=== PATIENT | female | born 1975 | race Caucasian/White ===

== ENCOUNTER 2017-01-04 16:23 | Inpatient (IN) | payer SELFPAY ==
[~2017-01-04] VITALS: Ht 170.2 cm; Wt 67.0 kg
[~2017-01-04 16:23] MED LIST: LEVO500T79 PO; METR500T19 PO
[2017-01-04 16:27] VITALS: BP 146/80; PULSE 98; RESP 22; O2SAT 100
[2017-01-04] MEDS ORDERED: 0.9% Sodium Chloride 1,000 ML IV ONE (16:49)
--- NOTE | 2017-01-04 16:49 | ED.REPORT ---
HPI-General Illness Date of Service Jan 04, 2017 ED Provider: Jj Olvera Patient is a 41 year old female with a hx of fallopian tube abscess who presents to the ED complaining of gradually worsening, constant, RLQ abdominal pain onset 3 days ago. She rates her pain as a 7/10 and has taken Tylenol and Morphine. She states that it feels similar to when she has had her fallopian tube abscess in the past. Associated symptoms include nausea, sweats, myalgia, diarrhea, and chills. She denies vomiting, headache, constipation, hematochezia , vaginal discharge, hematuria, dysuria, or any other symptoms. Nursing Notes Stated Complaint: STOMACH PAIN Chief Complaint: Female Abdominal Pain Nursing Notes Reviewed: Yes Allergies: Coded Allergies: amoxicillin (Verified Allergy, Severe, Rash,Itching,, 04/26/16) Scheduled PRN Acetaminophen (Acetaminophen) 325 Mg Tablet 650 MG PO Q4H PRN PRN For Pain General Time Seen by MD: 16:49 Chief Complaint Abdominal pain Hx Obtained From: Patient, Spouse Arrived By: Walk-in Sudden in Onset?: Yes Onset Occurred: 3 days ago Symptom Duration: Since onset Radiation: : Does not radiate Severity: Current: Pain level 7 out of 10 Severity: Maximum: Pain level 7 out of 10 Associated with: Reports: Nausea Context Related History: Denies Recent infection Similar Sx Previous: Yes Past Medical History Past Medical History fallopian tube abscess Past Surgical History C-spine fusion Reports: Smoking History Current Every Day Smoker Social History Alcohol Use: 1-3 per week Drug Use: THC Other Social History: Good social support, Ambulatory Status Independent Review of Systems Full Review of Systems Constitutional: Reports: Chills GI: Reports: Abdominal pain, Diarrhea, Nausea, Denies: Constipation, Hematochezia, Vomiting Female: Denies: Dysuria, Hematuria, Vaginal discharge Musculoskeletal: Reports: Myalgia Skin: Reports Diaphoresis Neurologic: Denies: Headache Complete sys rev & neg: except as marked. Physical Exam Nursing note and vitals reviewed. Constitutional: Well-developed, well-nourished. Not diaphoretic. Head: Normocephalic and atraumatic. Mouth/Throat: Oropharynx is clear and moist. No oropharyngeal exudate. Eyes: EOM are normal. Pupils are equal, round, and reactive to light. Neck: Supple, no tracheal deviation. Cardiovascular: Normal rate, regular rhythm. Equal and intact distal pulses throughout. Pulmonary/Chest: Effort normal and breath sounds normal. No respiratory distress. Abdominal: Soft. No distension. Diffusely tender to palpation in the lower abdomen. Voluntary guarding, no rebound. Bowel sounds present. Musculoskeletal: Range of motion grossly intact, moving all extremities. Neurological: AOx3. Grossly nonfocal exam. Strength and sensation intact and equal to bilateral upper and lower extremities. Skin: Warm and dry, no rashes or pallor appreciated. Psychiatric: Appropriate mood and affect. Behavior appears normal. Vital Signs Vital Signs Date Time Temp Pulse Resp B/P Pulse Ox O2 Delivery O2 Flow Rate FiO2 01/04/17 18:40 94 14 135/78 98 Room Air 01/04/17 16:27 37.1 98 22 146/80 100 Room Air Interpretation & Diagnostics Lab Results Interpretation Result Diagram: 01/04/17 1650 01/04/17 1650 Test 01/04/17 16:50 01/04/17 17:10 01/04/17 17:24 White Blood Count 19.2th/mm3 (3.8-10.1) Red Blood Count 4.28mil/mm3 (3.90-5.20) Hemoglobin 12.6g/dL (12.0-15.6) Hematocrit 36.2% (35.0-46.0) Mean Corpuscular Volume 84.6fL (81-100) Mean Corpuscular Hemoglobin 29.4pg (27.0-35.0) Mean Corpuscular Hemoglobin Concent 34.8% (32.0-37.0) Red Cell Distribution Width 13.8% (12.3-15.4) Platelet Count 280bil/L (150-400) Neutrophils (%) (Auto) 85.8% (40-74) Lymphocytes (%) (Auto) 6.5% (14-46) Monocytes (%) (Auto) 6.9% (4-12) Eosinophils (%) (Auto) 0.2% (0-5) Basophils (%) (Auto) 0.2% (0-3) Sodium Level 132mEq/L (134-144) Potassium Level 3.8mEq/L (3.5-5.2) Chloride Level 95mEq/L (97-108) Carbon Dioxide Level 21mmol/L (18-29) Blood Urea Nitrogen 6mg/dL (6-20) Creatinine 0.57mg/dL (0.57-1.00) Estimat Glomerular Filtration Rate 169mL/min (>59) Glucose Level 166mg/dL (60-99) Calcium Level 9.7mg/dL (8.5-10.1) Magnesium Level 1.6mg/dL (1.6-2.6) Total Bilirubin 1.0mg/dL (0.0-1.2) Aspartate Amino Transf (AST/SGOT) 18U/L (0-50) Alanine Aminotransferase (ALT/SGPT) 16U/L (0-32) Alkaline Phosphatase 95U/L (25-150) Total Protein 7.8g/dL (6.4-8.4) Albumin 4.2g/dL (3.4-5.0) Lipase 12U/L (13-60) Lactic Acid Level 1.1mmol/L (0.4-2.0) Urine Color Yellow (YELLOW) Urine Appearance Hazy (CLEAR,HAZY) Urine pH 7.0 (5.0-8.0) Urine Specific Avery 1.010 (1.003-1.035) Urine Protein Negativemg/dL (NEG,TRACE) Urine Glucose (UA) Negativemg/dL (NEGATIVE) Urine Ketones 40mg/dL (NEGATIVE) Urine Occult Blood Trace (NEGATIVE) Urine Nitrite Negative (NEGATIVE) Urine Bilirubin Negative (NEGATIVE) Urine Urobilinogen Normalmg/dL (NORMAL) Urine Leukocyte Esterase Negative (NEGATIVE) Urine RBC 3-10/hpf (0-2) Urine WBC 0-5/hpf (0-5) Urine Epithelial Cells Many/hpf (NONE-MOD) Urine Crystals None seen (NONE SEEN) Urine Bacteria None/hpf (NONE-FEW) Urine Hyaline Casts None/lpf (NONE) Urine Granular Casts None seen (NONE SEEN) Urine Waxy Casts None seen (NONE SEEN) Urine Red Blood Cell Casts None seen (NONE SEEN) Urine White Blood Cell Casts None seen (NONE SEEN) Urine Mucus None seen (None Seen) Urine Trichomonas None seen (NONE SEEN) Urine Yeast None (NONE SEEN) Urinalysis Comment None Urine Culture Reflexed Not indicated Lab Results Interpretation: Urine preg neg US Focused non-OB Pelvis IMPRESSION: 1. Findings suspicious for recurrent bilateral pyosalpinx in the setting of abdominal pain. 2. 2.6 cm dominant nonhemorrhagic left ovarian cyst, presumably functional given the patient's age. Dictated by: Lee Silva M.D. on 01/04/2017 at 19:02 Approved by: Lee Silva M.D. on 01/04/2017 at 19:12 Exam Performed by: Allied health pract Exam Type: Diagnostic Exam Interpreted by: Radiologist Re-Eval/Medical Decision Med Decision/Clinical Course 41-year-old female presenting to the ED for evaluation of several days of worsening abdominal pain that she thinks is similar to when she has had fallopian tube abscesses in the past. Given her history, decision was made to obtain a transvaginal ultrasound to start; her exam seems less consistent with appendicitis or any other acute intra-abdominal abnormality at this time. Laboratory studies reviewed, notable for a elevated white blood cell count. Ultrasound demonstrates findings consistent with bilateral pyosalpinx. Discussed this with the on-call OREMAN Dr. Jane - he recommended admission, broad-spectrum antibiotics, and he will see the patient in the morning. Suspect that she may need operative intervention. I discussed the above with the patient at length; patient agreeable to the plan as stated, no further questions. Time of Eval: 20:35 Re-Evaluation/Progress Note: Discussed imaging results and plan for admission. Patient understands and agrees with plan. All questions addressed at this time. Consultation : Referral / Consult Name: Alexx Jane MD Call Returned at: 20:25 Probation Worker: Will see patient, Agrees with eval, Agrees with plan, Accepts admit Note: Discussed pt's case. Admit pt. and he will see in the morning. Counseled Regarding: Diagnosis, Lab results, Need for admission Discharge & Departure Primary Impression: Pyosalpinx Disposition: ADMITTED TO HOSPITAL Discharge Condition All VS Reviewed: Yes Condition: Critical Referrals: Alexx Jane MD (PCP) Scribe Attestation Portions of this note were transcribed by Abdelrahman Hector. I, Dr. Olvera personally performed the history, physical exam and medical decision-making; I reviewed and confirmed the accuracy of the information in the transcribed note. Signed by: Abdelrahman Hector 01/04/172043 copies to: BuckAlexx troy MD, William B MD Jan 04, 2017 16:49 ABDELRAHMAN HECTOR Jan 04, 2017 16:58
[2017-01-04] MEDS ORDERED: Ondansetron 2 mg/mL 2 mL Inj IVPUSH PRN ×2 (16:50→20:45)
[2017-01-04 17:04] LABS: BASOPHILS % (AUTO) 0.2 % (0-3); EOSINOPHILS % (AUTO) 0.2 % (0-5); MONOCYTES % (AUTO) 6.9 % (4-12); Mean Corpuscular Hemoglobin 29.4 pg (27.0-35.0); Mean Corpuscular Volume 84.6 fL (81-100); NEUTROPHILS % (AUTO) 85.8 % (40-74); Platelet Count 280 bil/L (150-400)
[2017-01-04] MEDS: HYDROmorphone 0.5 mg/0.5 mL iSecure Syringe IVPUSH PRN ×3 (17:11→22:16)
[2017-01-04 17:22] LABS: Magnesium 1.6 mg/dL (1.6-2.6)
[2017-01-04 17:40] LABS: APPEARANCE,URINE HAZY (CLEAR,HAZY); COLOR,URINE YELLOW (YELLOW); OCCULT BLOOD,URINE TRACE (NEGATIVE); UROBILINOGEN,URINE NORMAL (NORMAL)
[2017-01-04 18:40] VITALS: BP 135/78; PULSE 94; RESP 14; O2SAT 98
--- NOTE | 2017-01-04 19:14 | DRSVH ---
PROCEDURE: US PELVIC SONOGRAM + TRANSVAGINAL SONOGRAM INDICATIONS: 41 year-old female with abdominal pain, and history of fallopian tube abscess. TECHNIQUE: Real-time scanning was performed of the pelvic organs, with image documentation. Additional endovagi nal scanning was necessary due to incomplete visualization of the adnexal and endometrial structures by transabdominal scanning. COMPARISON: [facility], US, US PELVIC+TRANSVAG, 05/22/2016, 10:[facility], 04/26/2016, 10:55. [facility], CT, CT ABD PELVIS W CON, 04/13, 8:33. [facility], US, PELVIS SONO TRANSVAGINAL (PNL), 04/05/2011, 16 :08. [facility], US, PELVIS SONO TRANSVAGINAL (PNL), 03/14/2011, 22:46. [facility], CT, ABD/PELVIS W/CON (PNL), 03/14/2011, 21:03. FINDINGS: Transabdominal scanning: Limited scanning through the kidneys shows no hydronephrosis. No pathologi c free abdominal or pelvic fluid. Endovaginal scanning: Uterus: Retroverted uterus is normal in size at 7.6 x 4.9 x 5.1 cm. The endometrium measures 8.2 mm in combined thickness. Several incidental cervical nabothian cysts are present. Ovaries: Left ovary measures 3.7 x 2.7 x 3.0 cm, and contains a dominant 2.6 x 2.1 x 2.0 cm thin-wall ed anechoic cyst. Right and left fallopian tubes appear thick walled and serpiginous, containing echo genic material. The right ovary itself appears normal in size and morphology, measuring 2.8 x 2.4 x 1 .6 cm. IMPRESSION: 1. Findings suspicious for recurrent bilateral pyosalpinx in the setting of abdominal pain. 2. 2.6 cm dominant nonhemorrhagic left ovarian cyst, presumably functional given the patient's age. Dictated by: Lee Silva M.D. on 01/04/2017 at 19:02 Approved by: Lee Silva M.D. on 01/04/2017 at 19:12
[2017-01-04] MEDS ORDERED: Clindamycin 900 mg/50 mL D5W IV ONE (20:40)
[2017-01-04] MEDS ORDERED: DEXTROSE 5% IV ONE (20:40)
[2017-01-04] MEDS ORDERED: GENTAMICIN IV ONE (20:40)
[2017-01-04] MEDS ORDERED: Alum-Mag Hydrox-Simeth 30 mL Suspension PO PRN (20:45)
[2017-01-04] MEDS ORDERED: Cefotetan 2,000 mg/100 mL D5W IV ONE ×2 (21:00)
[2017-01-04] MEDS ORDERED: Cefotetan Inj 2,000 MG in IV Premix 1 EACH IV ONE (21:10)
[2017-01-04 22:18] VITALS: BP 125/79; PULSE 93; RESP 18; O2SAT 96
[2017-01-04] MEDS ORDERED: ACET325T51 PO (22:32)
[2017-01-04 22:56] VITALS: BP 132/84; PULSE 91; RESP 19; O2SAT 97
[2017-01-04] MEDS ORDERED: 0.9% Sodium Chloride 250 ML ONE (23:22)
[2017-01-04] MEDS: Lactated Ringer's 1,000 ML IV SCH (23:30)
--- NOTE | 2017-01-04 23:38 | NUR ---
Arrival to unit Patient arrived to floor at 2250 via ED gurney. Able to ambulate to hospital bed independently. Complains of 4/10 lower abdominal pelvic pain. States pain medicine in ER has provided some relief. Denies CP/ SOB. VSS. IV in left AC is infusing LR at 100cc/hr with int. abx. Has stated that she tends to get anxiety while in the hospital, and that she much rather "be home." Allowed patient to voice concern and have reassured her that if there is anything we can do to make her time here more comfortable to let the staff know. Will continue to monitor and continue Q1 hour checks.
[2017-01-05] MEDS: HYDROmorphone 1 mg/mL Inj IVPUSH PRN ×4 (02:35→20:56)
[2017-01-05 05:51] VITALS: BP 130/86; PULSE 91; RESP 16; O2SAT 97
[2017-01-05] MEDS ORDERED: Clindamycin Inj 900 MG in IV Premix 1 EACH IV SCH (06:30)
[2017-01-05] MEDS: Lactated Ringer's 1,000 ML IV SCH ×3 (06:41→16:41)
[2017-01-05] MEDS ORDERED: Cefotetan Inj 2,000 MG in IV Premix 1 EACH IV SCH (09:15)
[2017-01-05] MEDS ORDERED: 0.9% Sodium Chloride 250 ML ONE (11:32)
[2017-01-05 11:44] LABS: BASOPHILS % (AUTO) 0.1 % (0-3); EOSINOPHILS % (AUTO) 0.3 % (0-5); MONOCYTES % (AUTO) 8.6 % (4-12); Mean Corpuscular Hemoglobin 29.1 pg (27.0-35.0); Mean Corpuscular Volume 85.4 fL (81-100); NEUTROPHILS % (AUTO) 82.7 % (40-74); Platelet Count 240 bil/L (150-400)
[2017-01-05] MEDS: Doxycycline Inj 100 MG in Dextrose 5% Minibag Plus 100 ML IV SCH (12:39)
--- NOTE | 2017-01-05 13:49 | NUR ---
Pain Patient reported 7/10 abdominal pain. 1mg Dilaudid given. Denies nausea. Patient independent in room. Repositions self for comfort. Call light and tray within reach. Will continue to monitor patient hourly.
[2017-01-05 19:42] VITALS: BP 119/79; PULSE 98; RESP 18; O2SAT 98
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
--- NOTE | 2017-01-05 21:16 | PROG NOTE ---
[address] [address] PROGRESS NOTE PATIENT: CASI GIORDANO : 1975 MR#: [id number] ADMIT: 01/04/2017 JOB ID: [id number] GYNECOLOGIC PROGRESS NOTE: DATE: 01/05/2017 TIME: About 1500 hours. SUBJECTIVE: The patient was admitted to [facility] on 01/04/2017 with suspected recurrent tubo-ovarian abscesses. Emergency department physician on admission initiated cefotetan, gentamicin, and clindamycin therapy. I have since adjusted the antikbiotic regimen to cefotetan and doxycycline therapy only. Pain continues today, although less than 14 hours after initiation of antibiotic therapy. Patient has been afebrile. White blood cell count has dropped from 19 to 15. OBJECTIVE: Abdominal and pelvic examinations have been accomplished with significant tenderness demonstrated, and urine GC and chlamydia Gen-Probe studies are pending. DISCUSSION AND COUNSELING: I have had a lengthy discussion with patient and her significant other regarding the presumed, recurrent, tubo-ovarian abscesses, see records from prior hospitalizations in 2010 and 2005 as well as current findings, all in the setting of recurrent abdominopelvic pain and elevated white blood cell count. Patient and her significant other indicate that they would like to have surgery to once and for all resolve the problem. This is ultimately a reasonable consideration in light of recurrent tubo-ovarian abcesses, although she first is receiving appropriate antibiotic therapy to hopefully shrink them as much as possible if not to completely resolve them and infection before any surgery. Thus, conservative management is currently appropriate unless some type of tubo-ovarian rupture, potential sepsis , or antibiotic failure occurs. There is the possibility that conservative management could lead to sterilized or fully resolved abscess pockets, although we cannot guarantee that this would occur, nor could we predict for certain whether or not abcesses would later recur. Of course, the advantage of effective conservative therapy would be to eliminate the need for major surgery, which could also result in menopause depending on what procedures would be needed. Most likely, surgery would be definitive with pelvic cleanout (removal of uterus, ovaries, tubes) due to probable significant scarring. The patient and her significant other do seem to understand the risks as well as value of surgery that will likely take place in the future, although there is the importance of current IV antibiotic therapy to quiet down infection to see where things end up. They clearly understand that antibiotics will be continued during hospitalization as well as after, and that we will have many opportunities to review clinical course as well as plan for the future. All questions have been answered, adn no guarantees have been stated or implied. IMPRESSION/PLAN: 1. Presumed bilateral, recurrent, tubo-ovarian abscesses, undergoing intravenous antibiotic therapy at [facility]. 2. Tracking clinical condition including pain, temperature, and white blood cell count and differential while using intravenous cefotetan and doxycycline. 3. For further discussion along the way regarding short- and long-term goals and options, ultimately to make a decision regarding whether to proceed with simply conservative antibiotic therapy and then observation over time versus more definitive surgical therapy, see discussion above. MTDD
[2017-01-05] MEDS: Cefotetan Inj 2,000 MG in IV Premix 1 EACH IV SCH (22:25)
[2017-01-06] MEDS: oxyCODONE-Acetamin 5-325 mg Tablet PO PRN ×6 (02:33→23:08)
[2017-01-06] MEDS: Lactated Ringer's 1,000 ML IV SCH ×3 (02:34→22:41)
[2017-01-06 03:54] VITALS: BP 114/76; PULSE 77; RESP 16; O2SAT 97
[2017-01-06 05:00] LABS: BASOPHILS % (AUTO) 0.1 % (0-3); EOSINOPHILS % (AUTO) 1.1 % (0-5); MONOCYTES % (AUTO) 12.2 % (4-12); Mean Corpuscular Volume 85.1 fL (81-100); NEUTROPHILS % (AUTO) 77.6 % (40-74); Platelet Count 276 bil/L (150-400)
--- NOTE | 2017-01-06 06:04 | NUR ---
Pain/activity Pt reported 8/10 pain to right side abdomen and took 1mg IV Dilaudid at beginning of shift. Pt able to sleep. Pain did come back up to 8/10 and pt took 2 tab of Percocet with much better relief. Pt reported pain 2/10 this morning and tolerable. Pt voiding in bathroom and blood noted in urine. Pt said this occurred yesterday but only when she voids. Abdomen is soft and VSS. Labs drawn this morning. Addendum: 01/06/17 at 0635 by ABDELRAHMAN PANIAGUA RN MD made aware, orders received for UA. Also suggested to have pt use Tampon to see if there is vaginal bleeding.
[2017-01-06] MEDS: Doxycycline Inj 100 MG in Dextrose 5% Minibag Plus 100 ML IV SCH ×2 (08:14→20:07)
[2017-01-06 08:45] VITALS: BP 114/71; PULSE 75; RESP 18; O2SAT 96
[2017-01-06] MEDS: Cefotetan Inj 2,000 MG in IV Premix 1 EACH IV SCH ×2 (11:23→23:01)
[2017-01-06 12:29] LABS: BASOPHILS % (AUTO) 0.2 % (0-3); MONOCYTES % (AUTO) 10.2 % (4-12); Mean Corpuscular Hemoglobin 29.2 pg (27.0-35.0); Mean Corpuscular Volume 85.8 fL (81-100); NEUTROPHILS % (AUTO) 78.2 % (40-74); Platelet Count 290 bil/L (150-400)
[2017-01-06 13:14] VITALS: BP 121/77; PULSE 81; O2SAT 100
[2017-01-06 15:05] LABS: APPEARANCE,URINE CLEAR (CLEAR,HAZY); COLOR,URINE STRAW (YELLOW)
[2017-01-06 15:06] LABS: OCCULT BLOOD,URINE TRACE (NEGATIVE); UROBILINOGEN,URINE NORMAL (NORMAL)
--- NOTE | 2017-01-06 16:26 | NUR ---
Pain/Plan Pt pain levels have decreased today with c/o 4 out of 10. Controlled with 1-2 tabs Percocet. Per MD, wants pt on IV antibiotics for at least 1-2 more days to prevent readmit, pt understood and agrees and compliant with care. Possible discharge Friday pending labs/pain control. No BM noted for past 5 days, pt does not feel constipated, took prune juice, declines stool softener at this time, and feels like she may have a BM on her own. Continue to monitor.
[2017-01-06 19:50] VITALS: BP 130/83; PULSE 70; RESP 16; O2SAT 99
--- NOTE | 2017-01-07 03:08 | NUR ---
Pain Pt reporting pain from 3-7/10 and has been taking 2 tab of Percocet with good relief. Pt did not want to use tampon to check for vaginal bleeding as she "does not tolerate them." Pt instead able to wipe and knows that she is having some vaginal bleeding but that this only occurs when she is on the toilet and is not actively bleeding while in bed. Abdomen is soft and VSS. Pt had another loose BM tonight.
[2017-01-07] MEDS: oxyCODONE-Acetamin 5-325 mg Tablet PO PRN ×4 (04:07→23:21)
[2017-01-07 05:46] VITALS: BP 129/85; PULSE 75; RESP 16; O2SAT 98
--- NOTE | 2017-01-07 06:25 | NUR ---
Pain Pt reporting the need to have another BM this morning, feeling increased pressure but unable to go, Pt given prune juice and stool softener, along with Maalox. Pt up walking to help with pain.
--- NOTE | 2017-01-07 06:44 | PROG NOTE ---
[address] [address] PROGRESS NOTE PATIENT: CASI GIORDANO : 1975 MR#: [id number] ADMIT: 01/04/2017 JOB ID: [id number] DATE: 01/06/2017 TIME: 1700. SUBJECTIVE: The patient was admitted to [facility] on the evening of January 04, 2017 with suspected recurrent tuboovarian abscesses. She was initiated on parenteral antibiotic therapy as primary treatment, with plans to keep hospitalized until pain notably diminished, white blood cell count has normalized, etc. She, her significant other and I have discussed ongoing outpatient antibiotic therapy for a time to follow hospitalization and also potential surgical option to remove fallopian tubes (and potentially uterus and ovaries if indicated, understanding risk of menopause if in fact, ovaries removed), for more definitive treatment in light of recurrent tuboovarian abscesses over the past several years. More discussion regarding options will occur in the future. HOSPITAL COURSE: The patient has been voiding, ambulating, eating and drinking and feeling better in general. She is doing well on occasional Percocet use. Pain is less in general, and on exam the abdomen is softer and tenderness significantly reduced, although still moderate in the lower abdomen, particularly the right side. The patient has remained afebrile and vitals have remained stable. She has had no leg pain or shortness of breath. Note that she has had some intermittent vaginal bleeding, originally she thought blood in the urine although second urinalysis during hospitalization is negative and vaginal blood more apparent. Note that white blood cell count has gradually diminished from original 19.2, then 15.5, then 14.9, then 13.1 around noon on January 06, 2017. There is slight left shift although neutrophils at 78% just above the upper limit of normal range. Note that urine chlamydia and gonorrhea studies are yet pending. Note that sodium is normalized up to 136, simply with increasing oral intake. IMPRESSION: Recurrent tuboovarian abscesses, appearing to be responding clinically with decreasing pain, softer abdomen, feeling better in general and normalizing white blood cell count. PLAN: Continue current therapy with cefotetan and doxycycline. Probably will be able to discharge in a couple of days, continuing to track clinical symptomatology and white blood cell count. Over the long run, we will negotiate with the patient, plans for outpatient antibiotic therapy for extended period of time, tracking of the abscesses by ultrasound hopefully to resolution, and then the big decision is to whether or not to proceed with more definitive surgical intervention versus allowing one more effort at conservative antibiotic management before major surgery that has risks and could lead to menopause.
[2017-01-07] MEDS: Lactated Ringer's 1,000 ML IV SCH ×2 (08:41→18:41)
[2017-01-07 11:03] VITALS: BP 135/84; PULSE 115; RESP 18; O2SAT 100
[2017-01-07] MEDS: Doxycycline Inj 100 MG in Dextrose 5% Minibag Plus 100 ML IV SCH ×2 (11:20→22:28)
[2017-01-07] MEDS: Cefotetan Inj 2,000 MG in IV Premix 1 EACH IV SCH ×2 (11:21→21:52)
[2017-01-07] MEDS ORDERED: 0.9% Sodium Chloride 100 ML ONE (11:27)
--- NOTE | 2017-01-07 17:08 | NUR ---
Pain Management Pain managed with 2 Percocet. Patient reports 9/10 pain. Patient educated on notifying RN for PRN pain meds. Denies nausea this shift. Patient independent in room and repositions self for comfort. Call light and tray table within reach. Will continue to monitor patient hourly.
[2017-01-07 19:27] VITALS: BP 137/92; PULSE 100; RESP 16; O2SAT 98
[2017-01-07 19:47] LABS: BASOPHILS % (AUTO) 0.1 % (0-3); EOSINOPHILS % (AUTO) 0.1 % (0-5); MONOCYTES % (AUTO) 5.4 % (4-12); Mean Corpuscular Hemoglobin 28.8 pg (27.0-35.0); NEUTROPHILS % (AUTO) 88.7 % (40-74); Platelet Count 351 bil/L (150-400)
[2017-01-07] MEDS: HYDROmorphone 1 mg/mL Inj IVPUSH PRN (20:55)
--- NOTE | 2017-01-07 22:12 | DRSVH ---
PROCEDURE: CT ABDOMEN AND PELVIS WITH CONTRAST ([id number]) INDICATIONS: abdominal and pelvic pain TECHNIQUE: After the administration of oral and intravenous contrast, 5 mm thick sections acquired from the diap hragms to the symphysis. 5 mm thick coronal and sagittal reformats were performed. For radiation do se reduction, the following was used: automated exposure control, adjustment of mA and/or kV accordi ng to patient size. COMPARISON: [facility], CT, CT ABD PELVIS W CON, 04/26/2016, 8:33. FINDINGS: Image quality: Excellent. ABDOMEN: Lung bases: There is mild atelectasis at the bilateral lung bases. Solid organs: Liver and spleen are normal in size and enhancement. Gallbladder is mildly distended. No gallbladder wall thickening or pericholecystic fluid.. Biliary system is non-dilated. Pancreas enhances normally. No adrenal nodules. Kidneys are normal in size and enhancement, without hydronep hrosis. Peritoneum and bowel: Stomach, small bowel, and colon loops are normal in overall caliber and wall t hickness. There is dilatation of the fluid-filled ascending colon. The transverse descending and sigm oid colon demonstrate normal caliber and wall thickness. No pneumoperitoneum. Nodes and vessels: No retroperitoneal or mesenteric adenopathy. Aorta and inferior vena cava are no rmal in caliber. Miscellaneous: No ventral hernias. PELVIS: Genitourinary: Bladder wall thickness is normal. Similar to the study dated 04/26/16, the bilateral fallopian tubes are ectatic and fluid filled. However, the current study demonstrates marked hyperemi a wall thickening which is a new finding. The a low-density fluid collection with rim enhancement is present within the posterior pelvis which measures 3.1 x 6.9 x 4.8 cm, consistent with a pelvic absce ss. Miscellaneous: No inguinal hernias or adenopathy. Bones: No suspicious bony lesions. No vertebral body compression fractures. IMPRESSION: 1. Ectasia of the bilateral fallopian tubes and marked wall thickening and hyperemia consistent with bilateral tubo-ovarian abscess. 2. Posterior pelvic rim enhancing fluid collection consistent with pelvic abscess. 3. Moderate dilatation of the fluid-filled ascending colon. This finding is likely reactive in nature given the inflammatory changes of the pelvis. The bowel is otherwise normal in course and caliber. These findings were discussed with at 10:07 PM on 01/09/17. Dictated by: Kena Ly M.D. on 01/07/2017 at 22:01 Approved by: Kena Ly M.D. on 01/07/2017 at 22:11
--- NOTE | 2017-01-07 22:32 | PROG NOTE ---
[address] [address] PROGRESS NOTE PATIENT: CASI GIORDANO : 1975 MR#: [id number] ADMIT: 01/04/2017 JOB ID: [id number] GYNECOLOGICAL PROGRESS NOTE: DATE: 01/07/17 SUBJECTIVE: The patient was admitted to [facility] in the evening of January 04, 2017 with a diagnosis of recurrent bilateral tubo-ovarian abscesses. This is at least the 3rd episode of hospitalization for pain and infection involving the tubo-ovarian areas. The last was in the fall of 2015, and she did not adequately follow up with treatment and sonographic followup. She was found to have a 5.1 x 2.5 x 3.6 cm right adnexal area suspected tubo-ovarian abscess, and 4.6 x 2.5 x 2.2 cm suspected left tubo-ovarian abscess. These abscesses were initially treated with intravenous antibiotics as initiated per emergency department physician, then switched to just cefotetan 2 g IV piggyback every 12 hours and doxycycline 100 mg IV piggyback every 12 hours. The patient experienced a gradual but steady improvement into January 05, 2017, then January 06, 2017, remaining afebrile, with significantly decreasing pain that was controlled with occasional Percocet use, and white blood cell count dropped from 19 range down to 13 range. It was anticipated that the patient would continue to improve with plans probably for discharge tomorrow, i.e. on January 08, 2017. Note, however, that today the patient reports that she has increased pain in her abdomen, she describes now in the right upper quadrant. This pain has waxed and waned in its intensity, but has persisted throughout the day. She does not describe pain in the left upper quadrant, her back, or lower abdomen, although that is where prior pain had been centered, especially towards her right side. The patient reports that it has been very uncomfortable to take a deep breath, with pain in the right upper quadrant, and that Percocet is not adequately controlling the pain, although she has slept a lot today, according to the nurse. The patient reports having some dry heaves and not eating much thus, and she also has had need to have a bowel movement and, in fact, had an episode of diarrhea earlier in the day, but she then felt a little bit better after. She is on the antibiotics as described which could modify the bowel cynthia. She indicates that her current discomfort in the right upper quadrant is an 8 or 9/10 on the pain scale at the time of my visit this evening, and says it is very different than the presumed tubo-ovarian abscess pain. She does not have known history of gallstones, liver problems, pancreatic problems, nor has she had flank pain to suggest urinary tract problem. PHYSICAL EXAMINATION: Afebrile, note heart rate 115 late morning, 100 this evening, blood pressure very mildly elevated at the time of agitation and pain. The abdomen is soft, in general, although with guarding. No obvious mass. Moderately tender in the right upper quadrant, nontender in the left upper quadrant, as well as across the lower abdomen/pelvis, although I did not press extremely hard. DIAGNOSTIC DATA: CT scan with intravenous and oral contrast of the abdomen and pelvis is pending. Lab work has demonstrated white blood cell count back up at 15.1, with 88.7% neutrophils. Hemoglobin is 13.0. Note ALT mild elevation at 49 and alkaline phosphatase elevation at 176. Note sodium and chloride dropped with values at 134 and 92 respectively, and a lactic acid is still in normal range, although increased somewhat at 1.8. Her increase from last check at 1.8 from 1.1. IMPRESSION: 1. Presumed bilateral tubo-ovarian abscesses, recurrent, undergoing intravenous antibiotic therapy with significant improvement in clinical condition/pain/white blood cell count during the 1st 48 hours of hospital observation and treatment. 2. New-onset of right upper quadrant pain today, waxing and waning in intensity, significant pain level at times with Percocet reportedly inadequately covering pain. Need to rule out cholelithiasis/cholecystitis, hepatic/pancreatic/kidney condition. Cannot rule out gastrointestinal disorder contributing to the pain in light of diarrhea episode and the sensation that she needs to go again. 3. See the impression list on history and physical from January 04, 2017 for additional diagnoses. PLAN: 1. Continuing cefotetan and doxycycline intravenously. 2. Added Dilaudid intravenously to Percocet. Availability for pain management. 3. I contacted Dr. Jonh Johnson, the general surgeon, regarding the patient's new onset of right upper quadrant pain of potential significance. He recommended CAT scan of the abdomen and pelvis with intravenous and oral contrast, now ordered. He and I also agreed to do a CBC, comprehensive metabolic panel, lipase, lactic acid level, and urinalysis, again with culture and sensitivity if indicated. 4. Depending on findings on imaging and labs (see results above), an ultrasound, to be reviewed per Drs. Jane and Jonh Johnson, to correlate with other clinical manifestations, and determine what is next observational versus diagnostic versus therapeutic maneuver. 5. Regarding the tubo-ovarian abscesses, doubt that these are contributing to right upper quadrant pain, unless some surprise finding on CAT scan or otherwise, would likely continue to observe on intravenous antibiotics in then ultimately oral antibiotics at home to follow serially transvaginal sonograms until hopefully masses resolve. Major surgery to remove tubes (and potentially ovaries and uterus) could be undertaken in time if needed. We hope to avoid major surgery, but with multiple recurrent episodes of tubo-ovarian abscesses, surgery becomes a reality, although the patient could make informed decision for optimal ongoing antibiotic therapy and serial studies regarding the abscesses to see if they fully resolve, no guarantees stated or implied. Note that if surgery for some reason is needed pertaining to the right upper quadrant pain, then there could be laparoscopic or other evaluation down low in the pelvis to view the tubo-ovarian abscess, then to potentially lead to surgical treatment if desired. DIONISIOD
--- NOTE | 2017-01-07 23:28 | CONS ---
[address] [address] CONSULTATION REPORT PATIENT: CASI GIORDANO : 1975 MR#: [id number] ADMIT: 01/04/2017 JOB ID: [id number] DATE OF SERVICE: 01/07/2017 REQUESTING PHYSICIAN: Alexx Jane M.D. HISTORY OF PRESENT ILLNESS: A 41-year-old female whom I was asked to see by Dr. Taiwo Jane because of worsening abdominal pain. She has a history of tubo-ovarian abscesses. She has failed followup and treatment of that as an outpatient after being hospitalized both in 2010 and 2014. In 2015, she had another tubo-ovarian abscess. She was readmitted on January 04, [address] Jane when she presented to the emergency department with lower abdominal pain. An ultrasound demonstrated a 5.1 x 2.5 x 3.6 right tubo-ovarian abscess and 4.6 x 2.5 x 2.2 left ovarian abscess. She was put on cefotetan and doxycycline. She initially showed improvement with her white blood cell count falling from 19,200 on January 04, 2017 to 13.1 yesterday, but today complained of increasing abdominal pain and, in particular, right upper quadrant abdominal pain. Her white blood cell count increased to 15.1, and she was noted to have a mild tachycardia. She was seen by Dr. Jane who noted right upper quadrant tenderness and called me and asked me to see her in consultation. She states she has had some nausea. She describes watery bowel movements she says are greenish, not bloody or red. She states just prior to coming to the hospital, she was taking multiple ibuprofen, she said up to six or seven at a time because of the pain. She has not had previous abdominal surgery. There is no known family history of gallstones. She said she was given some IV Dilaudid and is feeling better but still has abdominal pain. PAST MEDICAL HISTORY: ILLNESSES: 1. Multiple tubo-ovarian abscesses. 2. Tobacco abuse. She states seven cigarettes a day. 3. History of section. SOCIAL HISTORY: She is . She describes a stable relationship. FAMILY HISTORY: Negative for gastrointestinal disease or gallbladder disease. REVIEW OF SYSTEMS: Otherwise negative. PHYSICAL EXAMINATION: VITAL SIGNS: BMI 67, temperature is 36.8, brachial blood pressure 137/92, pulse 100, respiratory rate 16, O2 sat 98%. HEENT: PERRLA, EOMI. No scleral icterus. NECK: Trachea midline. No appreciable masses. LUNGS: Clear. CARDIAC EXAM: Regular rhythm. ABDOMEN: When I examined her, she actually has no right upper quadrant tenderness, but she does have bilateral lower quadrant tenderness and guarding. No left upper quadrant tenderness. EXTREMITIES: No edema. SKIN: No anterior abdominal wall rashes. NEUROLOGIC EXAM: Appropriate affect. No obvious cranial nerve deficits. She moves all extremities, but she was in bed and I did not assess her gait. LABORATORY RESULTS: White blood cell count today 15.1 up from 13.1 yesterday, hematocrit is 37.0, platelet count 351,000. She does have a left shift. Electrolytes: Sodium 134, potassium 4.3, total CO2 is 24, creatinine 0.57, glucose 131, lactic acid 1.8, bilirubin 0.6, AST 35, ALT 49, lipase 19. CT scan of the abdomen and pelvis with contrast seen and reviewed by myself and also together with Dr. Kena Ly from Radiology and then subsequently I discussed this with Dr. Jane. She has bilateral tubo-ovarian abscesses but also posterior pelvic rim enhancing fluid collection in the posterior pelvis between the uterus and rectum measuring about 7 cm consistent with an abscess. Her gallbladder appears normal. She has a fluid-filled right colon but without inflammation, but the right colon is up to approximately 8.7 cm. There is no free air. The pancreas appears normal. IMPRESSION: Her abdominal pain, and it appears by CT scanning, that all her pain is secondary to her complex recurrent tubo-ovarian abscesses and now probably a pelvic abscess. She may have an ileus involving the colon from her pelvic disease, but she does describe watery diarrhea earlier today. RECOMMENDATIONS: 1. Continue IV antibiotics. 2. Consider drainage of the pelvic abscess. If it cannot be done percutaneously, then consider laparoscopy. 3. I think it is okay to keep her on clear liquids. Thank you for allowing me to help you in her care.
[2017-01-07 23:43] LABS: APPEARANCE,URINE CLOUDY (CLEAR,HAZY); COLOR,URINE BLOODY (YELLOW); OCCULT BLOOD,URINE LARGE (NEGATIVE); PH,URINE 6.5 (5.0-8.0); UROBILINOGEN,URINE NORMAL (NORMAL)
[2017-01-08] VITALS (12 sets, daily range): BP systolic 125–153; BP diastolic 55–97; PULSE 68–119; RESP 12–22; O2SAT 92–97
--- NOTE | 2017-01-08 02:56 | NUR ---
Activity Pt back from CT at 2150. Pt reporting pain controlled at 3/10 after having Dilaudid IV 1mg. UA was sent. Pt able to sleep and 2 hours later needed 2 tabs of Percocet for 8/10 pain. Pt placed on clears per consultation note. Pt now sleeping and appears comfortable.
[2017-01-08] MEDS: HYDROmorphone 1 mg/mL Inj IVPUSH PRN ×6 (04:11→20:37)
[2017-01-08] MEDS: oxyCODONE-Acetamin 5-325 mg Tablet PO PRN ×3 (05:51→23:30)
[2017-01-08 06:31] LABS: BASOPHILS % (AUTO) 0.1 % (0-3); EOSINOPHILS % (AUTO) 0.1 % (0-5); MONOCYTES % (AUTO) 6.5 % (4-12); Mean Corpuscular Hemoglobin 29.2 pg (27.0-35.0); Mean Corpuscular Volume 82.3 fL (81-100); NEUTROPHILS % (AUTO) 88.2 % (40-74); Platelet Count 336 bil/L (150-400)
[2017-01-08] MEDS: Doxycycline Inj 100 MG in Dextrose 5% Minibag Plus 100 ML IV SCH ×2 (08:52→20:06)
[2017-01-08 11:30] LABS: INR 1.13 ratio
[2017-01-08] MEDS: Piperacillin-Tazo 3.375 Gm Inj 3.375 GM in Dextrose 5% Minibag Plus 50 ML IV SCH ×2 (12:25→22:27)
--- NOTE | 2017-01-08 14:13 | PROG NOTE ---
[address] [address] PROGRESS NOTE PATIENT: CASI GIORDANO : 1975 MR#: [id number] ADMIT: 01/04/2017 JOB ID: [id number] DATE: 01/08/2017 SUBJECTIVE: The patient is seen this morning in her room. She continues to have abdominal pain. Her white blood cell count has increased. She had a bowel movement and is passing gas. REVIEW OF SYSTEMS: She denies nausea or vomiting. PHYSICAL EXAMINATION: BMI 23. Temperature is 36.7, brachial blood pressure 130/94, pulse 103, respiratory rate 18, O2 sat room air 93%. Abdomen is mildly distended. She has four quadrant tenderness but significantly worse in the lower quadrants than the upper quadrants. LABORATORY RESULTS: White count 21,500, hematocrit 34.9, platelet count 336,000. INR 1.13. ASSESSMENT AND PLAN: I reviewed her CT scan from this morning with Dr. Ly. Dr. Jane had already done that. I discussed her case in detail with both Dr. Ly and later with Dr. Jane. I concur that the best way to approach her pelvic abscesses percutaneously if possible, and Dr. Ly is planning on doing that today. Hopefully she will then be able to cool off. Dr. Jane asked me about antibiotic choices and I recommended discussing it with Dr. Kishore Mcghee. TIME SPENT WITH PATIENT AND IN COORDINATION OF CARE: 40 minutes.
[2017-01-08] MEDS ORDERED: fentaNYL-PF 50 mCg/mL 2 mL Inj ONE (14:26)
--- NOTE | 2017-01-08 14:30 | NUR ---
Social Work- Brief Note Data: EMR reviewed. Pt is a 41 year old female admitted 01/04/17 for bilateral hydrosalpinx per H&P. Pt's pelvic abscesses to be drained percutaneously today. Pt continues on IV abx. Pt's PCP is listed as Alexx Jane MD. Pt is self pay insurance. Pt's [facility] is inactive at this time. [facility] is aware and following pt but pt has not completed screening at this time. [facility] continues to attempt screening. SW met with pt and family at bedside regarding discharge planning, SW role explained. Pt was asleep during this conversation and did not wake. Pt's mother Alannah, father John, and fiance [facility], were present and answered questions. Pt resides in [place] in a home with a roommate. Pt works at [employer] in [facility]. Pt is independent at baseline. Pt anticipated to discharge home with family to transport via POV, SW will continue to follow if needs arise, R/O IV abx. Assessment: Pt who is independent at baseline Plan: Pt's pelvic abscesses to be drained percutaneously today. [facility] is following pt. Pt is independent at baseline. Pt anticipated to discharge home with family to transport via POV, SW will continue to follow if needs arise, R/O IV abx. MARCO Bee
--- NOTE | 2017-01-08 14:30 | NUR ---
Pt off unit Pt off unit to IR.
[2017-01-08] MEDS ORDERED: fentaNYL-PF 50 mCg/mL 2 mL Inj IVPUSH ONE (16:05)
--- NOTE | 2017-01-08 16:14 | DRSVH ---
PROCEDURE: CT ABCESS DRAIN PERITONEAL INDICATIONS: posterior cul-de-sac abcess to drain per I.R. COMPARISON: None. The risks and benefits of the procedure were discussed with the patient, consent was obtained, and pl aced on the chart. The patient was placed in a prone position on the CT table. Conscious sedation and cardiorespiratory monitoring was provided by residential staff. 1% lidocaine was used to anesthe tize the skin over the area of interest. Using CT guidance, an 18 gauge Chiba needle was advanced int o the pelvic fluid collection. There was return of straw-colored turbid fluid. 20 cc were aspirated a nd sent for laboratory analysis. The inner stylette of the needle was removed, and a stiff 035 Amplat z wire was advanced into the fluid collection. The outer stylette of the needle was removed, and an 8 Vietnamese locking pigtail drain was advanced into the fluid collection. This was secured in place and c onfirmed by CT imaging. The drain was secured to the skin with an adhesive bandage. The patient tolerated the procedure well. FINDINGS: Initial CT demonstrates a low to intermediate density fluid collection within the cul-de-s ac. Final CT image demonstrates a locking pigtail drain within this fluid collection. IMPRESSION: Status post CT guided pelvic abscess drain placement. Dictated by: Kena Ly M.D. on 01/08/2017 at 16:10 Approved by: Kena Ly M.D. on 01/08/2017 at 16:12
--- NOTE | 2017-01-08 16:54 | PROG NOTE ---
[address] [address] PROGRESS NOTE PATIENT: CASI GIORDANO : 1975 MR#: [id number] ADMIT: 01/04/2017 JOB ID: [id number] DATE: 01/08/2017 SUBJECTIVE: The patient was admitted on January 04, 2017, with recurrent tubo-ovarian abscesses and associated pain and elevated white blood cell count. Cefotetan and doxycycline were both provided from the onset of hospitalization intravenously and the patient notably improved over the first 48 hours. However, pain worsened subsequently and white blood cell count elevated, and imaging (CAT scan) demonstrated development of a new posterior cul-de-sac abscess, up to 6.9 cm in greatest dimension. All of these findings were rather consistent with failing antibiotic therapy, warranting intervention. Note the colon was also dilated, although not dangerously so. The patient has continued to move gas and has had bowel movements, although more recently diarrhea. INCOMPLETE DICTATION: Dictation ends here.
--- NOTE | 2017-01-08 16:59 | NUR ---
[facility] Conscious sedation in CT at 1430 without problem. Return to [facility] at 1545 for sedation recovery. Return to room 1005 at 1645. Report to receiving RN.
--- NOTE | 2017-01-08 17:13 | NUR ---
Post Op Pt arrived to room 1005 at 1700 via her bed. Pt A&Ox3. YOON. States pain is a tolerable 01/20. Denies nausea. Would like to eat. paged and general diet ordered. Drain dressing c/d/I. Draining yellow fluid. Care continues.
[2017-01-08 17:20] LABS: BFWBC 192000 /mm3; MONOCYTES,BODY FLUID 2 %; OTHER CELLS,BODY FLUID 0
[2017-01-08] MEDS ORDERED: 0.9% Sodium Chloride 250 ML ONE (20:06)
[2017-01-09] VITALS: BP 146/90; PULSE 113; RESP 16; O2SAT 96
--- NOTE | 2017-01-09 01:08 | PROG NOTE ---
[address] [address] PROGRESS NOTE PATIENT: CASI GIORDANO : 1975 MR#: [id number] ADMIT: 01/04/2017 JOB ID: [id number] DATE: 01/08/2017, 13:00 hour. HOLE DIGGER PROGRESS NOTE: The patient was admitted [facility] on January 04, 2017, with diagnosis of presumed bilateral tubo-ovarian abscesses, recurrent, having had them develop and require treatment on more than one prior occasion. Note that with cefotetan and doxycycline, pain and white blood cell count steadily improved through the first 48 hours of hospitalization. However, subsequently abdominopelvic pain increased and then became rather significant by this morning (January 08, 2017), and white blood cell count climbed up to 15 from 13, and then all the way up to 21. Note that increasing pain and white blood cell count correlated with CAT scan findings from January 07, 2017, of new pelvic abscess in the posterior cul-de-sac region. PHYSICAL EXAMINATION: Vital signs acceptable, although some borderline to mild tachycardia, note afebrile status, note abdomen demonstrated diffuse abdominal tenderness, greater in the right lower quadrant, soft abdomen although guarding. DISCUSSION AND PLANNING: I have had a thorough discussion with the patient and her significant other regarding the progression in pain, increasing white blood cell count, and new finding of abscess. Antibiotic therapy is failing. It is now prudent to consider either an intervention by Radiology to drain the cul-de-sac abscess and leave the drain in place versus surgical maneuvering. I have discussed the case with Dr. Jonh Johnson, who also examined the patient, and we agreed that an interventional radiologic procedure would be preferable to surgery, which could be much more complex and with greater risk at this point of significant ongoing infection within the pelvis. If abscess could be drained then a change in antibiotics and time could potentially quiet down the process and allow for safer surgery later, probably definitive surgery with pelvic clean out. I have also spoken with Dr. Kena Ly, radiologist, and we reviewed films and she described drainage effort could be undertaken. I spoke also with HOLE DIGGER Oncology ophthalmic surgical assistant and robotic surgery expert from [place], and he also recommended an effort at drainage of the abscess and ongoing antibiotic therapy in an effort to quiet the infection rather than jumping into surgery. Finally, I also spoke with Dr. Mcghee, Infectious Disease specialist at [facility], and we agreed on switching cefotetan to Zosyn and to continue the doxycycline. The patient and her significant other are agreeable to these plans. IMPRESSION: 1. Recurrent bilateral tubo-ovarian abscesses. 2. New abscess in the cul-de-sac region, in conjunction with increasing white blood cell count and increasing pain, the finding of current antibiotic failure and need for additional intervention by a radiologist in attempt to drain cul-de-sac abscess plus adjustment in antibiotics, while surgical intervention would be a distant next option unless abscess rupture, sepsis, or other condition change would so warrant. PLAN: 1. I appreciate Dr. Jonh Johnson's input and recommendations today. 2. Dr. Kena Ly will make an effort at cul-de-sac abscess drainage and drain placement this afternoon. 3. Infectious Disease specialist, Dr. Mcghee, will consult on this patient the morning of January 09, 2017. 4. Cefotetan will be discontinued and Zosyn and doxycycline provided for ongoing antibiotic therapy. 5. Goals include quieting down infection and ultimately discharge to home on oral antibiotics utilized for some weeks, with surgical intervention planned in time once the inspection quiets and/or resolves for the most part, likely to accomplish pelvic clean out. This is warranted in light of multiple experiences with tubo-ovarian abscesses requiring multiple hospitalizations, now with more significant episode with new abscess development. Of course, surgical intervention could be undertaken sooner if needed for worsening conditions for example. 6. We will continue to monitor clinical symptoms, temperature, vital signs, pain and tenderness, and white blood cell count.
[2017-01-09] MEDS: oxyCODONE-Acetamin 5-325 mg Tablet PO PRN ×5 (03:48→19:34)
[2017-01-09 04:59] VITALS: BP 119/82; PULSE 102; RESP 16; O2SAT 94
[2017-01-09] MEDS: HYDROmorphone 1 mg/mL Inj IVPUSH PRN ×3 (05:45→21:07)
[2017-01-09] MEDS: Piperacillin-Tazo 3.375 Gm Inj 3.375 GM in Dextrose 5% Minibag Plus 50 ML IV SCH ×3 (05:45→21:00)
--- NOTE | 2017-01-09 06:14 | NUR ---
pain pt complained of pain in her R side, that radiated to her pelvis and around her back. she was given percocet for pain and dilaudid for breakthrough pain. they appeared to work well and each time nurse reassessed pts pain she was sleeping. however when pt woke up she would be in 8/10 pain again.
[2017-01-09 06:51] LABS: EOSINOPHILS % (AUTO) 0.5 % (0-5)
[2017-01-09 07:08] LABS: BASOPHILS % (AUTO) 0.2 % (0-3); MONOCYTES % (AUTO) 8.6 % (4-12); Mean Corpuscular Hemoglobin 29.5 pg (27.0-35.0); Mean Corpuscular Volume 81.4 fL (81-100); NEUTROPHILS % (AUTO) 84.6 % (40-74); Platelet Count 378 bil/L (150-400)
[2017-01-09 08:42] VITALS: BP 122/81; PULSE 103; RESP 18; O2SAT 92
[2017-01-09] MEDS: Ondansetron 2 mg/mL 2 mL Inj IVPUSH PRN ×2 (08:51→15:08)
[2017-01-09] MEDS: Doxycycline Inj 100 MG in Dextrose 5% Minibag Plus 100 ML IV SCH (10:53)
--- NOTE | 2017-01-09 11:07 | PROG NOTE ---
[address] [address] PROGRESS NOTE PATIENT: JOSEFINA GIORDANO : 1975 MR#: [id number] ADMIT: 01/04/2017 JOB ID: [id number] DATE: 01/09/2017 SUBJECTIVE: Josefina is seen in followup. She continues to complain of pain not surprisingly. Dr. Ly was able to place the percutaneous drain, and she felt it was well placed and it is draining cloudy yellowish fluid. REVIEW OF SYSTEMS: She complains of nausea. PHYSICAL EXAMINATION: Temperature 36.8, brachial blood pressure 122/81, pulse 103, respiratory rate 18, O2 sat 92%. Her abdomen is flat. She continues to have four quadrant tenderness, but definitely worse in the lower quadrants than the upper quadrant. LABORATORY RESULTS: Her white blood cell count today has risen to 28,400 with a left shift. Hematocrit is 34.5, platelet count 378,000. IMPRESSION: Complex bilateral tubo-ovarian abscesses with an associated pelvic abscess status post percutaneous drainage. I agree with consulting Dr. Mcghee. The rise in her white blood cell count is certainly alarming. I do not think though that I would repeat a CT today. But if she is not improved tomorrow I would repeat a CT scan. She may unfortunately need to have earlier surgical intervention than what we had hoped if she does not turn around soon.
--- NOTE | 2017-01-09 12:21 | PROG NOTE ---
[address] [address] PROGRESS NOTE PATIENT: CASI GIORDANO : 1975 MR#: [id number] ADMIT: 01/04/2017 JOB ID: [id number] DATE: 01/09/2017 GYNECOLOGIC PROGRESS NOTE: SUBJECTIVE: The patient was admitted with recurrent tubo-ovarian abscesses in the 4.5 to 5 cm range maximum dimension. She had significant improvement clinically over the first 48 hours of intravenous antibiotic therapy. However, pain then increased and white blood cell count elevated, and the patient was found to have an additional cul-de-sac abscess by CAT scan. She then underwent abscess drainage percutaneously per Interventional Radiology after consultation with Dr. Jonh Johnson, interventional radiologist Dr. Kena Ly, after discussion with another pelvic surgeon in [place] and also after a brief discussion with Dr. Mcghee, infectious disease specialist. The patient had the procedure yesterday afternoon and, in fact, has felt better since then and remains afebrile, although she is somewhat nauseated this morning. She had a bowel movement this morning. She has had elevation in white blood cell count further from 21-28 range, suspect related to additional deep margination of white blood cells, as well as to potentially significant infection, although hopefully will improve after abscess drainage with drain still in place and with switching antibiotics to Zosyn plus ongoing doxycycline. Note that abdominal examination demonstrates tenderness diffusely, and some mild distention, note bowel distention noted on recent CAT scan likely accounting for this in addition to the infection and abscesses. The pain and tenderness are worse in the right lower quadrant. DISCUSSION AND COUNSELING: I had a thorough discussion with the patient and her significant other today. I am pleased with the fact that thee drainage of the larger cul-de-sac abscess was possible and that drain is still in place and that she remains afebrile and she feels better. On the other hand, abdomen is still significantly tender and somewhat distended, and white blood cell count is further elevated. We will need to see how things go today and hopefully experience a significant white blood cell drop by tomorrow morning. This would be clinically reassuring. Our hope continues to avoid surgery while during time of acute significant infection when there is greater risk for bleeding and injury to other organs and wound problems and so forth. The patient and significant other understand this, and understand our desire to hold off at this time from surgery, feeling scared by all the consultants that I discussed this with. On the other hand, failure to respond to current maneuvers could lead to sooner surgery, although more definitive surgical therapy is preferred and likely weeks (or months) down the road if antibiotics and drainage are effective. I have asked Dr. Mcghee, infectious disease specialist, to see the patient. He indicated that he would be able to do so today. I appreciate his input regarding antibiotic therapy, current course, and to weigh in on any further interventions as to the type and timing. I have also appreciated Dr. Jonh Johnson's involvement, as well as Dr. Kena Ly's. We want to respond to clinical course as occurring yet not reach a point of sepsis. IMPRESSION: 1. Bilateral tubo-ovarian abscesses, chronically recurrent, under antibiotic therapy. 2. New abscess onset in the cul-de-sac, along with elevated white count and increasing pain, resulting from tubo-ovarian abscess/pelvic infection condition, with this new abscess now drained. PLAN: 1. Continuing Zosyn and doxycycline at this time. 2. Anti-nausea and anti-pain medicine have been provided for the patient. 3. Pending culture results, aerobic and anaerobic, from cul-de-sac abscess drained yesterday. 4. Anticipating infectious disease specialist consultation this morning. We will review his recommendations, and I will discuss these with him, and with Dr. Jonh Johnson and Dr. Kena Ly, as indicated. 5. Once again, surgery appears likely down the road, although hoping to do this when abdomen and pelvis are "hot" with infection but rather after successful conservative therapy for a time, if feasible.
[2017-01-09 14:33] VITALS: BP 139/87; PULSE 100; RESP 18; O2SAT 93
--- NOTE | 2017-01-09 15:42 | NUR ---
Precautions Primary nurse was told by Dr. Mcghee not to put pt on precautions even though they were ruling out MRSA and CDIFF. However pt is not having diarrhea. Spoke with Emeka in infection control regarding this. Emeka states that pt does not have a hx of MRSA therefore she does NOT need to be on contact precautions and if pt does not have any clinical signs of CDIFF (ie diarrhea) then she does not need to be on precautions. Pt currently not on any precautions.
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
--- NOTE | 2017-01-09 18:34 | NUR ---
Activity/Pain Pt up to the bathroom independent. Pt states she had small episode of diarrhea. Pt rates pain between 6-8/10. Pt's pain controlled most of the day with po pain medication. Pt needed one dose of IV Dilaudid for break thru pain. Pt having nausea today. Zofran 4mg given every 4 hours. Will continue to monitor.
[2017-01-09 20:08] VITALS: BP 129/88; PULSE 97; RESP 18; O2SAT 95
[2017-01-10] MEDS: Doxycycline Inj 100 MG in Dextrose 5% Minibag Plus 100 ML IV SCH ×3 (01:00→20:36)
[2017-01-10] MEDS: oxyCODONE-Acetamin 5-325 mg Tablet PO PRN ×4 (02:00→23:28)
[2017-01-10] MEDS: HYDROmorphone 1 mg/mL Inj IVPUSH PRN ×4 (03:39→16:09)
--- NOTE | 2017-01-10 04:41 | NUR ---
Pain/Bowels Pt has 0 episodes of diarrhea this shift. Up to BR independently wit good urine output. Pt rating pain 8/10 and rec'd PRN percocet. At 2 hrs Pt reports pain still 7/10 and requesting PRN IV dilaudid for breakthrough. IV dilaudid effective. Pt on FIBERGLASSER due to her respirations dropping when she sleeps, related to her snoring. Her was at bedside and states that is normal for her. Call light in reach. Care continues
[2017-01-10] MEDS: Piperacillin-Tazo 3.375 Gm Inj 3.375 GM in Dextrose 5% Minibag Plus 50 ML IV SCH ×3 (05:18→23:00)
[2017-01-10 05:37] LABS: Mean Corpuscular Hemoglobin 29.2 pg (27.0-35.0); Mean Corpuscular Volume 81.8 fL (81-100); Platelet Count 394 bil/L (150-400)
[2017-01-10 05:48] VITALS: BP 118/74; PULSE 73; RESP 18; O2SAT 93
[2017-01-10 06:12] LABS: BASOPHILS % (AUTO) 0 % (0-3); EOSINOPHILS % (AUTO) 0 % (0-5); MONOCYTES % (AUTO) 5 % (4-12); NEUTROPHILS % (AUTO) 75 % (40-74)
[2017-01-10 08:50] VITALS: BP 124/81; PULSE 90; RESP 18; O2SAT 93
--- NOTE | 2017-01-10 10:56 | PCM.PNSURG ---
Subjective Date of Service: Jan 10, 2017 Date of Service: Jan 10, 2017 Visit Information: Reason for Visit Bilateral Hydrosalpinx Surgery/Surgery Date Post-Op Day # Date of Admission: Jan 04, 2017 at 21:25 Hospital Day # Subjective: Patient is seen in surgical follow-up. She is hospital day #6 for tubo-ovarian abscess with significant leukocytosis and abdominal pain, she underwent percutaneous drainage yesterday and her drain put out 30 mL overnight. The appearance is cloudy in serous/purulent fluid. She reports that she feels much better today, decreased pain, she had a bowel movement this morning and has no current nausea/vomiting. Dr. Mcghee recommended some studies that are partially completed at this time, she was MRSA negative, sedimentation rate is quite elevated at 64, CRP is pending and her culture from the drainage showed gram-positive cocci but no sensitivities are back yet. She certainly has an unusual history with this being her third treatment for tubo-ovarian abscess in the last 5 or so years. Her pain is reasonably well-controlled on oral analgesics. And she is urinating without difficulty. Gastrointestinal: Tolerating Oral Feedings, No N/V, Passing Stool Pain Management: PO Postop Activity: Ambulating Independently Objective Objective Very pleasant female laying in her hospital bed with her supportive family at the bedside Vital Sign- Last 8 Hours Date Time Temp Pulse Resp B/P Pulse Ox O2 Delivery O2 Flow Rate FiO2 01/10/17 08:50 36.7 90 18 124/81 93 Room Air 01/10/17 05:48 36.6 73 18 118/74 93 Room Air Intake and Output- Last 8 Hour 01/10/17 Cumulative From/Thru 07:00 01/04/17 16:27 - 01/10/17 06:46 Intake Total 930 ml 40037 ml Output Total 530 ml 9792 ml Balance 400 ml 3058 ml Intake Oral 550 ml 8212 ml IV Total 380 ml 4638 ml Output Urine Total 500 ml 9762 ml Drainage Total 30 ml 30 ml # Bowel Movements 3 General: Alert, Oriented X3, Cooperative, No Acute Distress Lungs: Clear to Auscultation, Normal Air Movement Heart: Regular Rate/Rhythm Abdomen: Soft, Non-tender, Non-distended, Normoactive bowel tones SURGICAL WOUND : Wound Drainage Type: Other (drain coming out of the left upper buttock, diluted purulent fluid in the drain bag, 30 mL overnight output) Extremities: Warm, Thigh&Calf Soft/Nontender Neuro: Grossly Neurologically Intact, Normal Speech Catheters: None Result Diagram: 01/10/17 0511 01/07/171939 Assessment & Plan Impression Primary Diagnosis: 1. Tubo-ovarian abscess 41-year-old female with third episode of tubo-ovarian abscess in the last 5 or so years who was currently being treated with IV antibiotics and percutaneously placed subcutaneous drainage for her latest abscess. She reports feeling better today however she still has a very elevated white blood cell count of 22, 600 with band forms although it is trending down from yesterday. ESR elevated as well. Problems: (1) Tubo-ovarian abscess Status: Acute ICD Code: N70.93 Plan -Antibiotic regimen as per Dr. Mcghee, she is day 3 of Zosyn and day 6 of doxycycline -I would consider advancing her diet, as tolerated and she recently had a bowel movement and has less nausea/vomiting but I will defer to Dr. Jane -Encourage ambulation -Continue with drain management and flushing -Await final culture and sensitivities to streamline antibiotic possibly -Check and monitor CBC which does have 5 band forms today. -I anticipate she will go home with her drain in place and possibly need to be rescanned versus a sinogram down the road to assess abscess cavity size or resolution Pain Management: Oral oxycodone VTE Prophylaxis: Lizy Sanderson PAC Jan 10, 2017 10:56
[2017-01-10] MEDS ORDERED: Sodium Chloride LOK Flush 10 mL Syringe IVFLUSH PRN ×2 (14:40)
[2017-01-10 14:44] VITALS: BP 124/90; PULSE 120; RESP 20; O2SAT 94
--- NOTE | 2017-01-10 15:14 | PROG NOTE ---
[address] [address] PROGRESS NOTE PATIENT: CASI GIORDANO : 1975 MR#: [id number] ADMIT: 01/04/2017 JOB ID: [id number] DATE: 01/10/2017 INFECTIOUS DISEASE FOLLOWUP NOTE: REASON FOR FOLLOWUP: Bilateral tubo-ovarian abscess with associated pelvic abscess. INTERVAL HISTORY: Recall this is the very strange case of an otherwise healthy woman who has had three complicated tubo-ovarian abscesses over the last five or six years. This represents her 2nd severe episode in a year and maybe a sequelae or recrudescence of a bilateral tubo-ovarian process that occurred last fall. In any event, the patient now has bilateral tubo-ovarian abscesses, as well as a pelvic abscess which has a drain placed into it. Overnight the patient reports she has been free of fevers or chills. She has had no significant cough or chest pain. No sore throat or trouble swallowing, but she has had continued quite severe pelvic pain. This is made worse by movement or palpation, though not by eating, and is not accompanied by diarrhea or dysuria. PHYSICAL EXAMINATION: Reveals a very uncomfortable young woman. Temperature 36.7, pulse 90, respiratory rate 18, blood pressure 124/81. She is afebrile and has been now for six full days. The patient is tearful at times due to the pain. Oral cavity negative. Neck supple. Lungs clear. Cardiac tones without murmur. Abdomen is quite tender in the lower abdomen bilaterally, with hypoactive bowel tones. A drain is present. LABORATORIES: Include white count which is scarcely different at 22,600, still with 75% segs. Sed rate is 64. C-reactive protein is 59, which is 118 times the upper limit of normal. This is a striking value. Her creatinine is 0.57. Alkaline phosphatase is 176, which is up from 95. Albumin 3.6. Lipase 19. The chlamydia and gonorrhea have come back negative. HIV negative. QuantiFERON Gold pending. The MRSA screen is negative. The culture obtained from the drain is still negative, though there were gram-positive cocci seen on the Gram stains. This suggests they may be anaerobes. IMPRESSION: This is an unusual case of a woman with bilateral tubo-ovarian abscess and associated pelvic abscess who seems not to have any obvious reason for these recurrent and severe tubo-ovarian abscess issues. At this point she continues to have a very high white count, an extraordinarily elevated CRP, and a lot of pain. Also note that I failed to mention in my physical she is developing some phlebitis around her right forearm IV. RECOMMENDATIONS: 1. We will continue with the Zosyn, but I plan to increase it to q.6 hours for maximal effect and to just maximize the dosage. 2. The patient will require a PICC line and/or a midline as it is likely she will be receiving antibiotics here via the intravenous route for a while. 3. We will continue to closely follow this complex patient with you. Thank you very much.
[2017-01-10] MEDS ORDERED: LORazepam 0.5 mg Tablet PO ONE (15:40)
[2017-01-10 17:41] VITALS: PULSE 96; RESP 22; O2SAT 100
--- NOTE | 2017-01-10 18:33 | NUR ---
Pain/Activity/Anxiety Pt c/o increasing bloating and abdominal pain rated 8/10 without relief from PRN Percocet and IV Dilaudid. MD notified and advised RN to encourage pt to get up and moving. Pt ambulated approximately nursing home around unit, she also showered. Pt tolerated activity well and stated that she did feel better with pain around 6/10. Pt IV became infiltrated and MD ordered for midline access to be placed. Pt became extremely anxious and tearful. MD was notified and a one time dose of PO Ativan was ordered and administered with the result of pt becoming calm enough to have IV access placed.
[2017-01-10 20:47] VITALS: BP 135/87; PULSE 110; RESP 16; O2SAT 92
--- NOTE | 2017-01-11 00:46 | PROG NOTE ---
[address] [address] PROGRESS NOTE PATIENT: CASI GIORDANO : 1975 MR#: [id number] ADMIT: 01/04/2017 JOB ID: [id number] DATE: 01/10/2017 GYNECOLOGIC PROGRESS NOTE: SUBJECTIVE: The patient continues in her hospitalization since January 04, 2017 in the setting of bilateral recurrent tubo-ovarian abscesses as well as subsequent development of additional posterior cul-de-sac abscess. With development of the additional abscess, there was increased pain and increased white count mid week and antibiotics were modified and the posterior cul-de-sac abscess was drained with drain also left in place. It appears that after white blood cell count luciana to 28 and pain was greater, that there has been some improvement as reported in the day on multiple occasions when checking on the patient, with significant decrease in pain at times, able to ambulate in the hallway and had a shower. With a white blood cell drop that hopefully will continue to fall, and continue to remain afebrile. The patient did have a lot of visitors today which was stressful and wearing and likely contributed to poor sense of well being and discomfort mid day. Dr. Mcghee, Dr. Jonh Johnson, and I have been highly interested in conservative therapy with antibiotics and abscess drainage in an effort to well quiet the pelvis before consideration of any more definitive surgery for the recurrent tubo-ovarian abscesses. Conservative antibiotic therapy thus continues in an effort to avoid greater surgical risks when an infection is very active, note Zosyn and doxycycline continuing. Various test results are filtering in, as ordered per Dr. Valles. General clinical picture, condition and parameters are being followed, note that CBC will be obtained once again in the morning. Ambulation is being encouraged, and to reduce pain medication use when possible in the interest of improving bowel function, et cetera. IMPRESSION: 1. Recurrent bilateral tubo-ovarian abscesses, under treatment with antibiotic therapy. 2. New onset of additional abscess in the posterior cul-de-sac area, drained via Interventional Radiology, and with drain remaining in place with some drainage. PLAN: 1. Continue intravenous dual antibiotic therapy. 2. I appreciate continued followup and management per Dr. Mcghee, Infectious Disease Specialist. 3. I appreciate continued General Surgery followup concurrently. 4. To use combination of Dilaudid and oral pain medication (Percocet), to gradually diminish over time if feasible. 5. Increase activity, to plan a walk in the hallway every 4 hours which may help improve bowel function (moving gas well, sometimes only small bowel movement, sometimes diarrhea), should help work out abdominopelvic as well as general soreness from lying in bed, to help prevent deep venous thrombosis and pulmonary embolus as well as pneumonia, et cetera. 6. Regular diet in play, although recommend simpler food preferentially with significant oral fluids as tolerated. 7. Central line ordered per Dr. Mcghee in the setting of diminishing peripheral veins for ongoing intravenous antibiotic therapy. 8. Continue to track drain output, drain remaining in place in the posterior cul-de-sac abscess cavity. 9. Goals include ongoing aggressive antibiotic therapy and abscess drainage in an effort to optimize conservative therapies in the interest of quieting down the infection in hopes of gaining a number of weeks before likely definitive surgery. I have discussed these things with the patient and her significant other many times and they seem to well understand and have had all of their questions answered, without guarantees stated or implied. WALESKA
--- NOTE | 2017-01-11 01:44 | NUR ---
Pain/Bowel Movement/Ambulation On initial assessment, patient rated pain at 8/10 on pain scale. Patient refused pain medication at the time. Patient stated that she wanted to wait until it was close to bed. Patient ambulated around hallway x2 during shift with assistance from [facility]. Patient had a bowel movement, which was diarrhea mixed with blood from menses. Patient tearful at times but educated for deep breathing for relaxation. T drain irrigated with 10 cc of NS per MD orders. VSS. Call light within reach. Care continues
[2017-01-11 04:45] VITALS: BP 137/86; PULSE 101; RESP 17; O2SAT 95
[2017-01-11] MEDS: oxyCODONE-Acetamin 5-325 mg Tablet PO PRN ×5 (04:45→23:38)
[2017-01-11] MEDS: Piperacillin-Tazo 3.375 Gm Inj 3.375 GM in Dextrose 5% Minibag Plus 50 ML IV SCH ×4 (05:11→23:39)
[2017-01-11] MEDS: Doxycycline Inj 100 MG in Dextrose 5% Minibag Plus 100 ML IV SCH ×2 (07:42→21:47)
[2017-01-11 07:50] LABS: INR 0.96 ratio
[2017-01-11 08:09] LABS: BASOPHILS % (AUTO) 0.8 % (0-3); EOSINOPHILS % (AUTO) 2.2 % (0-5); MONOCYTES % (AUTO) 10.7 % (4-12); Mean Corpuscular Hemoglobin 29.1 pg (27.0-35.0); Mean Corpuscular Volume 81.4 fL (81-100); NEUTROPHILS % (AUTO) 73.2 % (40-74); Platelet Count 499 bil/L (150-400)
[2017-01-11 08:53] VITALS: BP 136/86; PULSE 86; RESP 16; O2SAT 96
--- NOTE | 2017-01-11 10:39 | PROG NOTE ---
[address] [address] PROGRESS NOTE PATIENT: CASI GIORDANO : 1975 MR#: [id number] ADMIT: 01/04/2017 JOB ID: [id number] DATE: 01/11/2017 SUBJECTIVE: This is a 41-year-old woman status post percutaneous drainage of tubo-ovarian abscess postprocedure day three. Leukocytosis has improved but not resolved, white blood cell count is 19, three days ago it was 28. She still complains of mildly diffuse abdominal pain. She has persistent tachycardia. Drain is in place with 30 mL of output yesterday. She has had a bowel movement overnight. OBJECTIVE: This morning her temperature is 36.9, heart rate 101, blood pressure 137/86, respiratory rate of 17, saturation 95% on room air. General: Awake, alert, no acute distress. Abdomen: Soft, mildly distended, mildly tender throughout, without rebound or guarding. Drain is in place with a small amount of murky output. LABORATORIES: White blood cell count 19.2, hematocrit 31.9, comprehensive metabolic panel within normal limits with exception of alkaline phosphatase 176 and ALT of 49. There has been no new imaging in the last 24 hours. Images from the abdominal CT and abscess drainage CT scan were reviewed this morning. ASSESSMENT: A 41-year-old woman with tubo-ovarian abscess status post percutaneous drainage. RECOMMENDATIONS: I recommend continuing antibiotic therapy per the primary team and Dr. Mcghee. I will defer to the primary team as far as plans for avoiding or proceeding with an operation. I will be following this patient through the weekend. Please page if there are questions, that cannot be answered by the primary team. My pager #[phone].
[2017-01-11] MEDS: HYDROmorphone 1 mg/mL Inj IVPUSH PRN ×2 (11:18→17:24)
[2017-01-11] MEDS: LORazepam 0.5 mg Tablet PO PRN ×2 (11:42→22:21)
--- NOTE | 2017-01-11 12:59 | PROG NOTE ---
[address] [address] PROGRESS NOTE PATIENT: CSAI GIORDANO : 1975 MR#: [id number] ADMIT: 01/04/2017 JOB ID: [id number] DATE: 01/11/2017 INFECTIOUS DISEASE FOLLOWUP NOTE: REASON FOR FOLLOWUP: Bilateral tubo-ovarian abscess with cul-de-sac pelvic abscess. INTERVAL HISTORY: Overnight, the patient reports no fevers, chills, or sweats. No cough, chest pain, or shortness of breath. Her pelvic/abdominal pain continues, but it is perhaps ever so slightly better. No problems with eating. No nausea or vomiting, as mentioned. I discussed this case by telephone in detail with Dr. Jane of [facility] this morning. PHYSICAL EXAMINATION: Reveals an afebrile woman. Note that she has been afebrile since admission, now one week ago. Current temp 36.8, pulse 86, respiratory rate 16, blood pressure 136/86. She is saturating well on room air. She does grimace a lot and appears on the edge of tears, and she is clearly quite distraught by this whole process, but that has not changed over the past couple of days. She is not acutely short of breath, however. Eyes without conjunctivitis. Oral cavity negative. Lungs clear. Cardiac tones without murmur. Abdomen continues to be diffusely rather tense and difficult to examine. It has not changed, however, appreciably for better or worse over the last couple days. LABORATORIES: Include white count 19,000 down from 28,000 a couple of days ago. The left shift has resolved. Creatinine is 0.57. Procalcitonin done two days ago was a very impressive 59; we have not repeated it yet. Recall that the fluid which was aspirated from the drain which remains in place had almost 200,000 white cells, and that culture is now growing gram-negative rods. Recall that on the Gram stain there were gram-positive cocci seen, so this looks to be a polymicrobial process. IMPRESSION: This is a complex woman with bilateral tubo-ovarian abscesses as well as a pelvic abscess localized to the cul-de-sac. She has a drain in place which is draining some clear faint greenish fluid. There is no evidence for progression of this process, and in fact by white count at least the patient is getting a bit better. She also perhaps looks a tad better clinically. RECOMMENDATIONS: 1. Will continue with high-dose Zosyn and doxycyline. 2. We await the final results from the cultures from the aspirated material. 3. Will continue to closely follow this patient with you, and note that I did discuss her with Dr. Jane by telephone today.
[2017-01-11 13:26] VITALS: BP 141/96; PULSE 96; RESP 18; O2SAT 98
--- NOTE | 2017-01-11 16:58 | PROG NOTE ---
[address] [address] PROGRESS NOTE PATIENT: CASI GIORDANO : 1975 MR#: [id number] ADMIT: 01/04/2017 JOB ID: [id number] DATE: 01/11/2017 The patient has been hospitalized during the past week with bilateral tubo-ovarian abscesses, as well as with the newer discovery of additional pelvic/cul-de-sac abscess that was subsequently drained per Interventional Radiology. In light of new abscess development and elevating white blood cell count and increasing pain, although initially had improved, yet a cul-de-sac abscess was indeed drained with drain left in place and antibiotics were changed. The patient continues to be observed on Zosyn, now on q.6 h. dosing per infectious disease, specialist Dr. Mcghee, and doxycycline 100 mg q.12 h. The goal continues to be for effective conservative management with intravenous and then potentially oral antibiotics in the short and then longer-term, probably with surgical pelvic clean-out in 6-8 weeks for definitive resolution of chronically recurrent tubo-ovarian abscesses. Clinical progress in recovery must continue to achieve this therapeutic strategy. Clinical progress is occurring very gradually, not anticipating over rapid response. Patient remains afebrile. She is, per her report, feeling less pain at times. She has felt better due to the last two mornings to the extent that she is now ambulating and taking a shower daily, and she has an improved appetite and had a significant bowel movement today (diarrhea). She feels that her abdomen may be less distended. EXAMINATION: Vital signs: Acceptable, mildly tachycardic at times yet normal heart rate at other times, trend improving. Afebrile. Abdomen: Some guarding, yet soft overall, although mildly distended. Distention appears to be perhaps 20% less today than yesterday morning, and although the patient is reactive with touching her abdomen, upon careful questioning and focal site isolation, she indicates that she is nontender in the upper quadrants with mild to moderate palpation, although still moderately tender in the lower quadrants with mild to moderate palpation, although preps 20% less tenderness than yesterday morning. No peritoneal signs. Note that examination of the lungs, heart, and lower extremities unremarkable. DIAGNOSTIC DATA: White blood cell count 19.2, down from 23.6, with 73% neutrophils, and no bands reported. (There were five bands yesterday.) Per infectious disease specialist, Dr. Mcghee, there is some growth apparently beginning in anaerobic cultures, and there had been gram-positive cocci noted on Gram stain upon abscess drainage fluid mid week. There are not yet any sensitivities. IMPRESSION: Recurrent bilateral tubo-ovarian abscesses plus with newer onset of cul-de-sac additional abscess that has been drained, general condition gradually improving on the basis of decreasing pain, decreasing tenderness, decreasing distention, improved bowel function, improved mobility, decreasing tenderness, and decreasing white blood cell count. Continuing conservative antibiotic therapy, and followed by three services including POSTAL CLERK, General Surgery, and Infectious Disease. PLAN: 1. Continue Zosyn and doxycycline. 2. Continue to track for a variety of subjective, clinical, and laboratory parameters. No additional imaging at this time. 3. Tracking various cultures, for antibiotic regimen adjustment if needed in the future. 4. I appreciate continued followup/management of this patient's infection/abscess condition by General Surgery and Infectious Disease specialist. 5. Continue to increase activity for improvement in strength, mental well-being, bowel function, while also reducing the risk of pneumonia and deep venous thrombosis, etc. Patient is up to the bathroom as well as having showers and also walking down the [place], with target ambulation in the hallway every 4 hours. 6. Continuing regular diet. 7. Continuing Percocet and intravenous Dilaudid for pain, preferring to work towards oral pain medication predominantly and then to gradually less and less. 8. Ativan 0.5 mg p.o. t.i.d. ordered at patient's request for anxiety which has been significant for her at times. 9. Continuing to track drain output. 10. I have had thorough discussion with the patient and her significant other regarding all these things multiple times each day and they understand, all questions have been answered, no guarantees have been stated or implied, and they share common goals.
--- NOTE | 2017-01-11 18:32 | NUR ---
Pain Pt sleeping when I went into her room just before 1500 hrs. Rechecked pt at 1700 hrs to administer IV antibiotic; pt c/o pain that was 8/10. Instructed pt advantages of PO pain medication vs. IV. Administered 1 mg IVP Dilaudid to make pt more comfortable until her next dose of oral pain medication. Pt sleeping again at 1830 hrs and has no c/o pain now.
[2017-01-11 19:29] VITALS: BP 131/87; PULSE 85; RESP 16; O2SAT 98
[2017-01-12] MEDS: oxyCODONE-Acetamin 5-325 mg Tablet PO PRN ×6 (03:36→23:40)
[2017-01-12 04:17] VITALS: BP 128/78; PULSE 96; RESP 18; O2SAT 95
[2017-01-12 04:35] LABS: BASOPHILS % (AUTO) 0.4 % (0-3); EOSINOPHILS % (AUTO) 3.2 % (0-5); MONOCYTES % (AUTO) 11.5 % (4-12); Mean Corpuscular Hemoglobin 28.6 pg (27.0-35.0); NEUTROPHILS % (AUTO) 66.3 % (40-74); Platelet Count 439 bil/L (150-400)
[2017-01-12] MEDS: Piperacillin-Tazo 3.375 Gm Inj 3.375 GM in Dextrose 5% Minibag Plus 50 ML IV SCH ×4 (05:08→23:25)
--- NOTE | 2017-01-12 05:32 | NUR ---
Pain / Anxiety Pt c/o significant pain to abdomen throughout shift; regular Q4H dosing of PO Percocet administered. No IV pain medication necessary this shift, though pt initially requested after showering and exacerbating pain level - once pt realized PO medication would be available in 20min, agreeable to wait for PO dosing. Pt consistently reports pain at approx. 6-8/10, and consistently asleep after administration. Pt somewhat labile, frequent episodes of crying. Ativan administered x1 this shift. VSS, no telemetry. No new output to drain this shift.
--- NOTE | 2017-01-12 07:06 | PCM.PNSURG ---
Subjective Visit Information: Reason for Visit Bilateral Hydrosalpinx Surgery/Surgery Date Post-Op Day # Date of Admission: Jan 04, 2017 at 21:25 Hospital Day # Subjective: Complains of low pelvic pain this am, worse than yesterday. WBC has improved from 19 to 13. Vitals normal. Objective Vital Sign- Last 8 Hours Date Time Temp Pulse Resp B/P Pulse Ox O2 Delivery O2 Flow Rate FiO2 01/12/17 04:17 36.8 96 18 128/78 95 Room Air Intake and Output- Last 8 Hour 01/12/17 Cumulative From/Thru 07:00 01/04/17 16:27 - 01/12/17 05:43 Intake Total 872 ml 06563 ml Output Total 400 ml 83295 ml Balance 472 ml 4088 ml Intake Oral 700 ml 10248 ml IV Total 172 ml 5498 ml Output Urine Total 400 ml 80588 ml Drainage Total 0 ml 30 ml # Bowel Movements 4 General: Alert, Oriented X3, Mild Distress Abdomen: Soft, Guarding, Distended, Other (Moderate tenderness in 4 quadrants) Result Diagram: 01/12/17 0430 01/07/17 1940 Assessment & Plan Impression 41yof with tubo-ovarian abscess. Problems: Plan Long discussion of care mgmt with Dr. Jane yesterday. Agree with nonoperative management. If she complains of similar/worse pain consider repeat CT. 20 minutes were spent on this pt's care, >50% in counseling and/or coordination of care. VTE Prophylaxis: Nikole Zhou MD Jan 12, 2017 07:06
[2017-01-12] MEDS: HYDROmorphone 1 mg/mL Inj IVPUSH PRN (07:18)
[2017-01-12] MEDS: Doxycycline Inj 100 MG in Dextrose 5% Minibag Plus 100 ML IV SCH ×2 (09:12→21:15)
[2017-01-12] MEDS: LORazepam 0.5 mg Tablet PO PRN ×2 (09:13→23:24)
--- NOTE | 2017-01-12 11:19 | PROG NOTE ---
[address] [address] PROGRESS NOTE PATIENT: CASI GIORDANO : 1975 MR#: [id number] ADMIT: 01/04/2017 JOB ID: [id number] DATE: 01/12/2017 SUBJECTIVE: The patient has now been hospitalized for one week with ongoing treatment of tubo-ovarian abscesses plus additional posterior cul-de-sac abscess that arose during hospitalization. Cul-de-sac abscess was drained and drain remains in place, although no reported output recently. Intravenous antibiotics continue i.e. Zosyn and doxycycline. Goals include "quite quieting down" the infection, ultimately to transition antibiotic treatment from inpatient to outpatient, and then to consider the possibility of more definitive surgical intervention for the abscesses to potentially include pelvic clean out i.e. hysterectomy and removal of ovaries and tubes. As time has further past following drainage of cul-de-sac abscess plus switching to Zosyn, then increasing frequency of dosing, patient is gradually improving on the basis of intermittently feeling better in general, ambulating more, having less pain and distention, having improved bowel function, and with improving white blood cell count. Whereas gradual recovery is not rapid whatsoever, it does appear to be steady. PHYSICAL EXAMINATION: Patient remains afebrile. Vital signs acceptable. Blood pressure borderline elevated at times, pulse has improved with no recorded tachycardia during the past 24 hours (85-96). Pulse oximetry demonstrates normal O2 saturations on room air. Abdomen, there is some diffuse distention although appearing to be further reduced perhaps another 20% today with abdomen a little bit softer as well. Initially, patient is anxious and reactive with voluntary guarding, although after spending time with patient and some effort at exam, she is able to not tighten up and the abdomen is actually soft overall. There no perineal signs, there is no reported tenderness anywhere with gentle moderate pressure. I did not give strong pressure, rather the consistent pressure I have been giving each day during exam. DIAGNOSTIC DATA: White blood cell count 13.6, (down from 19.2, which was down from 22.6, which is down from 28.4). Neutrophil percent is 66% (down from 73% which was down from 75% which was down from 84.6%). Hemoglobin is 11.1. E. coli has grown on the aerobic culture from the posterior cul-de-sac abscess, sensitive to Zosyn. Note, no anaerobes recovered at 48 hour culture. IMPRESSION: Recurrent tubo-ovarian abscesses (three episodes during the past 5-6 years), also newly developed cul-de-sac abscess during hospitalization, now drained, and continuing antibiotic therapy. Clinical progress is evident on the basis of how patient subjectively feels, abdominal exam findings (always difficult to assess, although greater clarity when patient is not tearful and anxious), and with notably decreasing white blood cell count. PLAN: 1. Continuing on Zosyn and doxycycline, and will further follow up anaerobic culture over time. Antibiotic and other recommendations and management per infectious disease specialist Dr. Kishore Mcghee will be appreciated. 2. Ongoing follow up continues per infectious disease specialist, general surgery service, and DIVERSIONAL THERAPIST'S ASSISTANT. 3. No imaging planned today. 4. Increase activity, ambulating in the hallway, and to have daily shower, et cetera. 5. Continue regular diet and to push oral fluids, tracking bowel function typically with bowel movement every day, sometimes loose/diarrhea. 6. Encouragement given regarding emotional state. It has been wearing on patient to be in the hospital for a week. She has had pain, although it is improving, although anxiety and stress and suspected hospitalitis" seemed to aggravate general sense of well being. I have ordered Ativan 0.5 mg p.o. t.i.d. which has helped when used, and another dose encouraged this morning as patient was tearful, tired of hospitalization, sad that her significant other could not be with her this morning, et cetera. 7. We will recheck CBC and differential tomorrow morning. Other labs and lab follow up per infectious disease specialist, Dr. Mcghee. 8. Very thorough discussion with patient today regarding her progress, and the importance of daily assessment to ensure continuing progress, hoping ultimately to see pain improved with decreased need for pain medication and ultimately the possibility of going home to continue on antibiotics until probable surgery down the road. I cannot give a specific time table, or at this point, comment as to when next imaging would be required, but we have discussed the fact that we do not want to do surgery at this time even if ultimately needed, time will tell.
[2017-01-12 16:48] VITALS: BP 135/90; PULSE 83; RESP 18; O2SAT 97
--- NOTE | 2017-01-12 17:41 | NUR ---
Pain/Anxiety/Drain/Activity 30 Ml yellow liquid out of drain this shift including q shift 10ml NS flush. Cardiac: Pt denies CP, no tele, HR 80s Resp: Pt denies SOB, SpO2 high 90s on RA GI/: Pt denies n/v, pt discussed bowel meds with phycisian. Docusate is available PRN, pt does not desire bowel meds given that her last stool was loose. Hat in toilet to collect C.Diff stool sample. Neuro: Pt AOx3, able to YOON, Pt is very anxious and crying this AM. Ativan given this AM while pt consulting with physician. Ativan very effective. Pt able to rest comfortably following pain meds and ativan. Pain assessed q4 hours to stay on top of pain with PO meds to limit utilization of breakthrough IV pain meds. Pt up and ambulating in halls.
[2017-01-12 20:03] VITALS: BP 142/89; PULSE 85; RESP 16; O2SAT 98
[2017-01-13] MEDS: oxyCODONE-Acetamin 5-325 mg Tablet PO PRN ×4 (03:49→17:17)
--- NOTE | 2017-01-13 04:02 | NUR ---
Activity Pt reporting pain up to 7/10 and continues to take 2 tab of Percocet q 4hrs to keep pain under control. Pt took ativan at bedtime so declined to take Ambien that was ordered shortly after Ativan given. Pt was able to walk just outside hospital door to say helamee to family dog. Pt was very grateful to be able to do that. Drain flushed with 10 cc and has out little drainage so far this shift. Addendum: 01/13/17 at 0605 by ABDELRAHMAN PANIAGUA RN Pain Pain up to 8/10 this morning after about an hour of having Percocet. Pt requested breakthrough dose of Dilaudid. On reassessment, pt sleeping and appears comfortable.
[2017-01-13 04:05] VITALS: BP 125/85; PULSE 92; RESP 18; O2SAT 96
[2017-01-13] MEDS: Piperacillin-Tazo 3.375 Gm Inj 3.375 GM in Dextrose 5% Minibag Plus 50 ML IV SCH ×2 (04:42→12:40)
[2017-01-13] MEDS: HYDROmorphone 1 mg/mL Inj IVPUSH PRN (05:04)
[2017-01-13 05:10] LABS: BASOPHILS % (AUTO) 0.4 % (0-3); EOSINOPHILS % (AUTO) 3.3 % (0-5); MONOCYTES % (AUTO) 9.3 % (4-12); Mean Corpuscular Volume 82.5 fL (81-100); NEUTROPHILS % (AUTO) 68.2 % (40-74); Platelet Count 458 bil/L (150-400)
[2017-01-13] MEDS: Doxycycline Inj 100 MG in Dextrose 5% Minibag Plus 100 ML IV SCH (08:35)
[2017-01-13] MEDS: LORazepam 0.5 mg Tablet PO PRN ×2 (08:45→13:28)
--- NOTE | 2017-01-13 09:14 | PROG NOTE ---
[address] [address] PROGRESS NOTE PATIENT: CASI GIORDANO : 1975 MR#: [id number] ADMIT: 01/04/2017 JOB ID: [id number] DATE: 01/13/2017 SUBJECTIVE: The patient is seen in followup. She reports this morning she is feeling better. She says her abdominal pain is decreasing. REVIEW OF SYSTEMS: She denies nausea and vomiting. She had a bowel movement yesterday. PHYSICAL EXAMINATION: BMI 23. Temperature is 36.7, brachial blood pressure 125/85, pulse 92, respiratory rate 18, O2 sat 96%. She is alert no distress. Abdomen significantly improved since last week. She still has lower abdominal tenderness, although it is significantly improved. DIAGNOSTIC STUDIES: Culture results from her drain: E. coli sensitive to everything. IMPRESSION: Tubo-ovarian abscess with pelvic abscess. She is significantly improved. It does not look like she will be needing any urgent operative intervention.
--- NOTE | 2017-01-13 11:43 | NUR ---
NUTRITION ASSESSMENT Assess: 41 YO F admitted for tubo-ovarian abscess with pelvic abscess. PO intake has been variable, currently fair at 25-100%. PMHX: Multiple tubo-ovarian abscesses, tobacco abuse. DIET: General. PO intake 25-100%. LABS: Cr 0.52, Glu 106, Alk Phos 251, Alb 3.0 MEDICATIONS: Reviewed. Colace. GI: 1 BM (01/11). SKIN: No issues noted. ANTHROPOMETRICS: Wt: 67.0 kg, BMI 23.1 kg/m2, Admit wt: 67.0 kg. ESTIMATED NEEDS: Calories: 4911-4426 kcal/day (25-30 kcal/kg BW) Protein: 54-80 g/day (0.8-1.2 g/kg BW) NUTRITION DIAGNOSIS: 1) No diagnosis at this time. INTERVENTION: 1) Continue current diet as ordered. MONITOR/EVALUATE: PO intake, diet tolerance, labs, GI/nutrition status. Follow per low nutrition risk guidelines.
--- NOTE | 2017-01-13 12:39 | NUR ---
Social Work: Continued Discharge Planning D: EMR reviewed. Pt is on day 9 of hospitalization. Per MD in AM multi-disciplinary rounds, pt is is POD5 and is pending ID to determine discharge. Pt is independent at baseline. Pt anticipated to discharge home with family to transport via POV. SW will continue to follow if needs arise, R/O IVABX. A: Pt who is independent at baseline P: Pt is independent at baseline. Pt anticipated to discharge home with family to transport via POV. SW will continue to follow if needs arise, R/O IVABX. MARCO Mota
[2017-01-13 13:32] LABS: BASOPHILS % (AUTO) 0.3 % (0-3); EOSINOPHILS % (AUTO) 3.3 % (0-5); MONOCYTES % (AUTO) 6.8 % (4-12); Mean Corpuscular Hemoglobin 28.5 pg (27.0-35.0); Mean Corpuscular Volume 82.6 fL (81-100); NEUTROPHILS % (AUTO) 70.6 % (40-74); Platelet Count 537 bil/L (150-400)
--- NOTE | 2017-01-13 13:40 | NUR ---
Blood redraw Dr Jane requested another blood draw since pt's a.m. labs showed an increase in WBC. New WBC count is 13.[address] Jane to relay this information at 1340. He will consult with infectious diseases before discharging the pt. Pt resting in bed.
[2017-01-13 15:28] VITALS: BP 146/90; PULSE 94; RESP 18; O2SAT 98
--- NOTE | 2017-01-13 15:42 | PROG NOTE ---
[address] [address] PROGRESS NOTE PATIENT: CASI GIORDANO : 1975 MR#: [id number] ADMIT: 01/04/2017 JOB ID: [id number] DATE: 01/13/2017 REASON FOR FOLLOWUP: Complex bilateral tubo-ovarian abscess process with cul-de-sac pelvic abscess. INTERVAL HISTORY: Over the weekend, the patient continues to have a lot of pain, but it seems to be gradually diminishing and she is now able to walk around and began to eat what resembles a normal diet. She notes that she has no fevers or chills. No respiratory complaints and diminished abdominal pelvic pain. No skin rash. PHYSICAL EXAMINATION: Reveals a woman who has been afebrile throughout her 9- or 10-day hospital stay. Currently 36.7, pulse 92, respiratory rate 18, blood pressure 125/85. She is still tearful, still appears to be in pain but states she is better. Her mood is quite depressed and her affect labile. Oral cavity negative. Lungs reasonably clear. Cardiac tones: No new murmur. Her abdomen has hypoactive bowel sounds but much less tender than it was when I last saw it a day or two ago. It is also less distended than it was a couple days ago. No skin rashes noted. LABORATORIES: Include a white count which has stayed at roughly 15,000 over the past couple days, down from 20,000 levels two days ago. The diff is normal but the platelet count is slightly elevated at 458 and that has been consistent the last couple days. Her creatinine is okay at 0.52. LFTs normal except for a bump in the alk phos to 251. Of greatest interest is the C-reactive protein, which has gone from 59 five days ago, down to 14.5 today. Procalcitonin is basically negative at 0.2. Recall that fluid was obtained from the pelvic abscess which is basically just purulent, 200,000 white cells, and that fluid has grown a pansensitive E. coli without anaerobes. Blood cultures were not done at this location. Urine had greater than 100,000 mixed cynthia and a MRSA screen was negative. No new imaging. The notes from [facility] and General Surgery were reviewed. IMPRESSION: This is a strange case of a woman with recurrent now bilateral tubo-ovarian abscesses who has also developed a cul-de-sac pelvic abscess. Sampling of the abscess yielded very purulent material which grew Escherichia coli. She has now improved on broad-spectrum antibiotics but her CRP still has a long ways to go, having started at a really astronomical level of 60. In addition, she still has some leukocytosis so I am not completely sanguine about this case. I do think it is reasonable for her to go home on oral antibiotics in the next 24 hours or less, as she does seem to be steadily improving on clinical grounds. RECOMMENDATIONS: 1. I would continue her with IV antibiotics as long as she is here and she is currently receiving Zosyn and doxycyline. 2. Once she is ready to be discharged, I think she is ready to be sent out on levofloxacin plus Flagyl. The levo should be 750 once a day and the Flagyl 500 twice a day. I would continue these for a minimum of two weeks. 3. I will see the patient in my clinic, January 22. Please give her a lab slip so that she can have a CBC with diff and CRP done before her appointment so we can discuss it at the time of the appointment on January 22. 4. I will continue to see her as long as she stays here in the hospital, but if the other involved physicians think she is ready to go today even, I do not see any particular reason not to favor that because she is walking, talking, eating and able to tolerate oral medications.
--- NOTE | 2017-01-13 16:06 | PCM.DIGYN ---
Surgical Discharge Instruction Dates of Hospitalization Date of Hospital Admission Jan 04, 2017 at 21:25 Providers Admitting Physician: Alexx Jane MD Primary Care Physician: Alexx Jane MD Attending Physician: Alexx Jane MD Diagnosis at Time of Discharge Problems: (1) Tubo-ovarian abscess Status: Acute ICD Code: N70.93 (2) Pyosalpinx Status: Acute ICD Code: N70.93 Diet Discharge Diet: No restrictions Activity Discharge Activity-General: No lifting >10 pounds for 4-6 weeks, Other (Pelvic Rest for 6 weeks.) Follow Up Plan Follow-up appointment: Weeks (Follow-up Appointment with Dr. Jane at 8:45AM on 01/15/17, and with Dr. Mcghee on 01/22/17.) Call your provider for: Fever, Increasing pain Alexx Jane MD Jan 13, 2017 16:05
[2017-01-13] MEDS ORDERED: IBUP-1827 PO (16:14)
[2017-01-13] MEDS ORDERED: METR500T PO (16:14)
[2017-01-13] MEDS ORDERED: CIPR750T4 PO (16:14)
[2017-01-13] MEDS ORDERED: OXYC1TAB24 PO (16:14)
--- NOTE | 2017-01-13 17:29 | NUR ---
Discharge Pt discharged to home with spouse via private vehicle at 1720 hrs. Midline IV was removed by IV therapist. VSS. Pain controlled with 1 Percocet. All personal possessions sent with pt. Provider prescriptions given to pt and pt instructed to go to Dr Jane's office to have him sign them. Instructed pt and spouse on flushing of pelvic drain. Stressed importance of completing all antibiotics as ordered. Stressed importance of keeping follow up appointments with Dr Jane and Dr Mcghee. Pt expressed verbal understanding.
--- NOTE | 2017-01-13 21:45 | DIS ---
[address] [address] DISCHARGE SUMMARY PATIENT: CASI GIORDANO : 1975 MR#: [id number] ADMIT: 01/04/2017 JOB ID: [id number] DIS: 01/13/2017 DISCHARGE DIAGNOSES: 1. Tubo-ovarian abscesses, recurrent. 2. Additional posterior cul-de-sac abscess, drained. PROCEDURES PERFORMED DURING HOSPITALIZATION: 1. Intravenous antibiotic therapy. 2. CT-guided percutaneous drainage of posterior cul-de-sac abscess. 3. CAT scan. 4. Transvaginal sonography. HOSPITAL COURSE: This patient was admitted to [facility] on January 04, 2017, with recurrent bilateral tubo-ovarian abscesses. The patient was given antibiotic therapy intravenously and demonstrated initial improvement before pain and white blood cell count elevation occurred. Repeat imaging with CAT scan demonstrated posterior cul-de-sac abscess, new. This was drained percutaneously for interventional radiology and antibiotics were also switched from cefotetan and doxycycline to Zosyn and doxycycline. Gradually, over time, after abscess drainage and with ongoing small amount of drainage of sometimes cloudy fluid, in conjunction with change in antibiotics, pain and tenderness gradually diminished, white blood cell count reduced, and patient's activity and sense of well-being notably improved. Note, although anaerobic cultures were negative by time of discharge, aerobic culture from drained abscess cavity demonstrated E. coli, sensitive to all tested antibiotics. By the day of discharge on January 13, 2017, white blood cell count was down to 13.3 (with a high of 28). Pelvic pain was being controlled on reducing amounts of now only oral pain medication and patient remained afebrile. She requested discharge to home, understanding that down the line, she would be looking at major abdominal surgery that would encompass probable pelvic cleanout, after some weeks of observation and further quieting of pelvic infection with outpatient oral antibiotics. DISCHARGE PROGRAM: Patient will call p.r.n. increasing pain, high fever, or other problem. Otherwise, she will follow up initially in two days, on January 15, 2017, for office visit. We will determine over time any needed lab work, imaging, and antibiotic duration as well as potential changes, although for the time being, clinical condition will be simply tracked while using Cipro 750 mg p.o. b.i.d. and Flagyl 500 mg p.o. b.i.d. These antibiotics were provided for three weeks at starting point as recommended per Dr. Kishore Mcghee, infectious disease specialist, who consulted on and closely followed the patient during hospitalization along with gynecology and General Surgery services.
== END 2017-01-13 17:17 | disposition home or self-care (01) | DRG 759 ==
LOC: SED 16:23 → OSC 21:25
PROVIDERS: ADMIT Obstetrics & Gynecology; ATTEND Obstetrics & Gynecology
PROC: 0J9C30Z Drainage of Pelvic Region Subcutaneous Tissue and Fascia with Drainage Device, Percutaneous Approach (ICD-10-PCS; principal; 2017-01-08)
DX: N70.93 Salpingitis and oophoritis, unspecified (principal); R10.31 Right lower quadrant pain; F17.210 Nicotine dependence, cigarettes, uncomplicated; N73.5 Female pelvic peritonitis, unspecified; B96.20 Unspecified Escherichia coli [E. coli] as the cause of diseases classified elsewhere